=== PATIENT | male | born 1950 | race Caucasian/White ===

== ENCOUNTER 2020-04-18 08:52 | Outpatient (CLI) | payer OTHER, SELFPAY ==
--- NOTE | 2020-04-18 08:58 | USCV_ITS ---
Arun Higginbotham Age: 70 Gender: M : 1950 Exam Date: 04/18/2020 09:16 Ordering Phys: Niko Glez MD Technologist: Sam Smith Exam Location: [facility] [place] Indication: aaa HISTORY: Diameter (cm) AP x Transverse x Length Velocity (cm/s) Waveform Prox Aorta: 1.58 x 1.47 x 145.10 Biphasic Mid Aorta: 3.21 x 3.02 x 59.70 Biphasic Distal Aorta: 3.05 x 2.54 x 87.40 Biphasic Right Iliac Prox: 0.94 x 1.06 x 80.00 Biphasic Left Iliac Prox: 1.33 x 1.16 x 82.00 Biphasic Stent Prox Landing x x Aneurysmal Sac Max x x Lt Lat Sac Dim Rt Lat Sac Dim Stent Dist Landing x x Right Iliac Stent x x Left Iliac Stent x x Right Renal Art Left Renal Art FINDINGS: Comparison: none available. Normal Doppler flow velocites noted throught the aorta and common iliac arteries. Ectatic abdominal aorta with evidence of atherosclerotic plaque noted. Maximum diameter of 3.2 cm. CONCLUSIONS Minimal AAA, 3.2 cm, with ectasia and atherosclerosis. Dr. Rea Denton DO (Electronically Signed) Final Date: 18 April 2020 11:16 S
== END 2020-04-18 08:53 | disposition home or self-care (01) ==
LOC: RAD 08:56
PROVIDERS: PCP Family Medicine; Visit Provider Family Medicine
DX: I71.4 Abdominal aortic aneurysm, without rupture (principal); I70.0 Atherosclerosis of aorta
CPT/HCPCS: 93978

== ENCOUNTER 2020-11-23 14:16 | Outpatient (CLI) | payer OTHER, SELFPAY | END 2020-11-23 14:17 | disposition home or self-care (01) | LOC: SPT 14:16 | PROVIDERS: PCP Family Medicine; Visit Provider Orthopaedic Surgery | DX: Z46.89 Encounter for fitting and adjustment of other specified devices (principal); M18.11 Unilateral primary osteoarthritis of first carpometacarpal joint, right hand | CPT/HCPCS: L3924 ==

== ENCOUNTER → 2021-02-02 08:50 | Outpatient (BNVA) | payer OTHER, SELFPAY | PROVIDERS: PCP Family Medicine; Visit Provider Podiatrist Foot & Ankle Surgery | DX: M79.89 Other specified soft tissue disorders (principal) | CPT/HCPCS: 88307 ==

== ENCOUNTER 2021-03-29 23:05 | Inpatient (IN) | payer OTHER, MEDICARE, SELFPAY ==
--- NOTE | 2021-03-29 23:11 | ECG_ITS ---
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 Measurements Intervals [place] Rate: 76 P: 37 [place]: 222 QRS: -15 QRSD: 78 T: -1 QT: 353 QTc: 399 Interpretive Statements SINUS RHYTHM WITH FIRST DEGREE AV BLOCK POSSIBLE LEFT ATRIAL ENLARGEMENT [-0.1mV P WAVE IN V1/V2] INFERIOR MYOCARDIAL INFARCTION [40+ ms Q WAVE AND/OR ST/T ABNORMALITY IN II/aVF], PROBABLY OLD Compared to ECG 06/05/2019 09:38:27 Sinus arrhythmia no longer present Left-axis deviation no longer present Myocardial infarct finding still present Electronically Signed On 03-30-2021 20:07:26 CDT by Jax Beal M.D. [id number] f
--- NOTE | 2021-03-29 23:11 | XRR_ITS ---
PROCEDURE INFORMATION: Exam: XR Chest Exam date and time: 03/29/2021 11:11 PM Age: 71 years old Clinical indication: Chest pressure; Patient HX: Chest pain. No prior cardiac history. ; Additional info: Cp TECHNIQUE: Imaging protocol: XR of the chest. Views: 1 view. COMPARISON: CTA Abdomen/Pelvis [id number] 08/29/2017 9:46 AM FINDINGS: Lungs: Hazy bibasilar opacities and mild thickening of the interstitial markings which may be secondary to congestive heart failure. Pleural spaces: Unremarkable. No pleural effusion. No pneumothorax. Heart/Mediastinum: There is mild cardiomegaly. Bones/joints: Unremarkable. XR/XR chest 1V portable [id number] IMPRESSION: 1. Mild cardiomegaly. 2. Hazy bibasilar opacities and mild thickening of the interstitial markings which may be secondary to congestive heart failure.
[2021-03-29 23:17] VITALS: BP 170/91; PULSE 78; RESP 20; TEMP 36.6; O2SAT 91; BMI 32.5
[2021-03-30] VITALS (49 sets, daily range): BP systolic 115–168; BP diastolic 65–98; PULSE 60–93; RESP 9–28; TEMP 36.7–37.1; O2SAT 93–99
[2021-03-30 00:45] LABS: Basophils # 0.1 10^3/uL (0.0-0.1); Basophils % 0.8 %; Eosinophils # 0.1 10^3/uL (0.0-0.8); Eosinophils % 1.3 %; Hematocrit 45.2 % (42.0-52.0); Hemoglobin 15.4 g/dL (11.7-16.6); Lymphocytes # 1.3 10^3/uL (0.8-4.8); Lymphocytes % 21.5 %; Mean Corpuscular HGB Conc 34.1 g/dL (30.0-36.0); Mean Corpuscular Volume 93.8 fl (80-94); Mean Platelet Volume 10.6 fL (7.4-10.4); Monocytes # 0.5 10^3/uL (0.2-0.9); Monocytes % 8.5 %; Neutrophils # 4.15 10^3/uL (1.8-7.7); Neutrophils % 67.6 %; Nucleated Red Blood Cells % 0 %; Platelet Count 203 10^3/cmm (130-400); Red Blood Count 4.82 10^6/uL (4.1-5.3); Red Cell Distribution Width 13.3 % (12.1-15.1); White Blood Count 6.1 10^3/uL (4.0-10.0)
--- NOTE | 2021-03-30 01:01 | CTR_ITS ---
PROCEDURE INFORMATION: Exam: CTA Chest With Contrast Exam date and time: 03/30/2021 1:01 AM Age: 71 years old Clinical indication: Chest pressure; Patient HX: Chest pain. Abnormal cxr. Initial troponin of 290. ; Additional info: Mass/ cp TECHNIQUE: Imaging protocol: Computed tomographic angiography of the chest with contrast. 3D rendering (Not supervised by radiologist): MIP and/or 3D reconstructed images were created by the technologist. Radiation optimization: All CT scans at this facility use at least one of these dose optimization techniques: automated exposure control; mA and/or kV adjustment per patient size (includes targeted exams where dose is matched to clinical indication); or iterative reconstruction. Contrast material: OMNI 350; Contrast volume: 83 ml; Contrast route: INTRAVENOUS (IV); COMPARISON: CR XR chest 1V portable [id number] 03/30/2021 12:58 AM RADIATION DOSE METRICS: Total DLP (mGy-cm): 562.94 FINDINGS: Pulmonary arteries: No pulmonary embolism. Aorta: Mild atherosclerotic disease of the aorta without aneurysm. Lungs: Mild pulmonary fibrosis. Bilateral lower lobe infiltrates and edema of the interstitium. Pleural spaces: Tiny bilateral pleural effusions. Heart: Atherosclerotic coronary artery calcifications are present. There is mild cardiomegaly. Lymph nodes: Unremarkable. No enlarged lymph nodes. Bones/joints: Unremarkable. No acute fracture. Soft tissues: Unremarkable. CT/CT angio chest PE protcl [id number] IMPRESSION: 1. No pulmonary embolism. 2. Mild atherosclerotic disease of the aorta without aneurysm. 3. Atherosclerotic disease of the coronary arteries. 4. Mild pulmonary fibrosis. 5. Mild cardiomegaly. 6. Mild CHF/pulmonary edema , primarily affecting lower lobes. 7. Tiny bilateral pleural effusions. . Radiation Dose CTDIVOL = (mGy): DLP = 562.94 (mGy-cm)
[2021-03-30 01:05] LABS: Alanine Aminotransferase 28 U/L (0-41); Albumin Level 4.3 g/dL (3.5-5.2); Alkaline Phosphatase 95 IU/L (40-130); Anion Gap 16.3 (5-19); Aspartate Amino Transferase 36 U/L (0-40); Blood Urea Nitrogen 16 mg/dL (8-23); Calcium 9.4 mg/dL (8.5-10.5); Carbon Dioxide 24 mmol/L (22-29); Chloride 97 mmol/L (98-107); Globulin 2.5 g/dL (1.3-4.6); Glomerular Filtration Rate 74.1 mL/min (90-130); Glucose 165 mg/dL (65-115); Osmolality Calculated 281 mOsm/kg (285-295); Potassium 4.3 mmol/L (3.5-5.1); Sodium 133 mmol/L (136-145); Total Bilirubin 0.4 mg/dL (0.15-1.2); Total Protein 6.8 g/dL (6.6-8.7)
[2021-03-30 01:07] LABS: Troponin(5th) Baseline 290 ng/L (0-15)
--- NOTE | 2021-03-30 01:07 | ED_ITS ---
HPI - Chest Pain General: Chief Complaint: Chest Pain Stated Complaint: cp going down arm Time Seen by Provider: 03/30/21 00:04 Source: patient Limitations: no limitations History of Present Illness: HPI narrative: 71-year-old male states has been having ongoing chest pain over the last 6 months. He states he is has intermittent sharp pains in his right chest he states over the last 6 months. He states today he had another pain and it radiates to his right arm. He states pain is since resolved and is pain-free. He denies any fever cough. Denies any worsening improving factors. Denies any pain with exertion. Associated symptoms: Deny abdominal pain, dyspnea, fever(s), nausea or vomiting Review of Systems Const: Denies: fever(s), chills, body aches or change in appetite Eyes: Denies: blurry vision or eye discomfort ENMT: Denies: throat pain or dental pain Card: Reports: chest pain Resp: Denies: dyspnea GI: Denies: abdominal pain, nausea, vomiting or diarrhea : Denies: dysuria Musc: Denies: neck pain or back pain Skin/Breast: Denies: rash Neuro: Denies: headache(s) Psych: Denies: depression Héctor/Lymph: Denies: easy bruising All/Imm: Denies: urticaria PFSH ED PFSH: Medical History Abdominal aortic aneurysm, without rupture Allergic rhinitis, unspecified Benign prostatic hyperplasia without lower urinary tract symptoms Cervicalgia Chronic laryngitis Essential (primary) hypertension Generalized anxiety disorder Hyperlipidemia, unspecified Insomnia, unspecified Low back pain Obesity, unspecified Obstructive sleep apnea (adult) (pediatric) Pain in left arm Type 2 diabetes mellitus without complications Unspecified chronic gastritis without bleeding Physical Exam Const: COMMON NORMALS: no acute distress, patient oriented x3 and healthy appearing HENMT: COMMON NORMALS: normocephalic and atraumatic HEAD & SCALP: normocephalic and atraumatic Eye: COMMON NORMALS: Equal, round and reactive pupils present and EOMs intact bilaterally PUPIL: Yes Equal, round and reactive pupils present Neck/C-Spine: COMMON NORMALS: full ROM and supple Chest: COMMONS NORMALS: normal inspection of the chest and normal palpation of entire chest wall Resp: COMMON NORMALS: normal respiratory effort, No retractions, No use of accessory muscles and clear to auscultation bilaterally AUSCULTATION: clear to auscultation bilaterally Cardio: COMMON NORMALS: regular rate, regular rhythm and No murmurs present (Cardio) RATE: regular rate RHYTHM: regular rhythm GI: COMMON NORMALS: Normal to inspection, nondistended, normoactive bowel sounds present, Soft to palpation, non-tender and no masses PALPATION: Yes Soft to palpation Extremity: COMMON NORMALS: normal to inspection and full ROM Neuro: COMMON NORMALS: patient oriented x3, moves all extremities and no focal motor deficits Psych: COMMON NORMALS: mental status grossly normal, Normal thought process present and cooperative THOUGHT PROCESS: Normal thought process present Skin: COMMON NORMALS: no rashes or lesions noted and no wounds GENERAL SKIN EXAM: no rashes or lesions noted Course Vital Signs: Vital signs: Vital Signs Temperature 97.9 F 03/29/21 23:17 Pulse Rate 65 03/30/21 02:32 Respiratory Rate 16 03/30/21 02:32 Blood Pressure 148/81 03/30/21 02:32 Pulse Oximetry 93 03/30/21 02:32 MDM - Chest Pain MDM Narrative: Medical decision making narrative: Patient presents here with chest pain and has an elevated troponin with 2-hour troponin delta of over 300. Patient is likely having an NSTEMI. He is chest pain-free here and his EKG here showed no signs of ST elevation. Will start on Lovenox I spoke to hospitalist and cardiology and will admit. Lab Data: Labs: Lab Results 03/30/21 03/30/21 03/30/21 Range/Units 00:35 00:35 00:35 WBC 6.1 (4.0-10.0) 10^3/ uL RBC 4.82 (4.1-5.3) 10^6/u L Hgb 15.4 (11.7-16.6) g/dL Hct 45.2 (42.0-52.0) % MCV 93.8 (80-94) fl MCH 32.0 (28.0-34.0) pg MCHC 34.1 (30.0-36.0) g/dL RDW 13.3 (12.1-15.1) % Plt Count 203 (130-400) 10^3/c mm MPV 10.6 H (7.4-10.4) fL Neut % (Auto) 67.6 % Lymph % (Auto) 21.5 % Vernon % (Auto) 8.5 % Eos % (Auto) 1.3 % Baso % (Auto) 0.8 % Neut # (Auto) 4.15 (1.8-7.7) 10^3/u L Lymph # (Auto) 1.3 (0.8-4.8) 10^3/u L Vernon # (Auto) 0.5 (0.2-0.9) 10^3/u L Eos # (Auto) 0.1 (0.0-0.8) 10^3/u L Baso # (Auto) 0.1 (0.0-0.1) 10^3/u L Nucleated RBC % (a uto) 0 % Nucleated RBCs # 0.0 /100WBC Sodium 133 L (136-145) mmol/L Potassium 4.3 (3.5-5.1) mmol/L Chloride 97 L (98-107) mmol/L Carbon Dioxide 24 (22-29) mmol/L Anion Gap 16.3 (5-19) BUN 16 (8-23) mg/dL Creatinine 1.0 (0.7-1.2) mg/dL GFR Calculation 74.1 L (90-130) mL/min Glucose 165 H (65-115) mg/dL Calculated Osmolal ity 281 L (285-295) mOsm/k g Calcium 9.4 (8.5-10.5) mg/dL Total Bilirubin 0.4 (0.15-1.2) mg/dL AST 36 (0-40) U/L ALT 28 (0-41) U/L Alkaline Phosphata se 95 (40-130) IU/L Troponin T Baselin e 290 H* (0-15) ng/L Troponin T 120 Min [place] (0-15) ng/L Delta Troponin T (0-10) ABS# Total Protein 6.8 (6.6-8.7) g/dL Albumin 4.3 (3.5-5.2) g/dL Globulin 2.5 (1.3-4.6) g/dL 03/30/21 Range/Units 02:30 WBC (4.0-10.0) 10^3/ uL RBC (4.1-5.3) 10^6/u L Hgb (11.7-16.6) g/dL Hct (42.0-52.0) % MCV (80-94) fl MCH (28.0-34.0) pg MCHC (30.0-36.0) g/dL RDW (12.1-15.1) % Plt Count (130-400) 10^3/c mm MPV (7.4-10.4) fL Neut % (Auto) % Lymph % (Auto) % Vernon % (Auto) % Eos % (Auto) % Baso % (Auto) % Neut # (Auto) (1.8-7.7) 10^3/u L Lymph # (Auto) (0.8-4.8) 10^3/u L Vernon # (Auto) (0.2-0.9) 10^3/u L Eos # (Auto) (0.0-0.8) 10^3/u L Baso # (Auto) (0.0-0.1) 10^3/u L Nucleated RBC % (a uto) % Nucleated RBCs # /100WBC Sodium (136-145) mmol/L Potassium (3.5-5.1) mmol/L Chloride (98-107) mmol/L Carbon Dioxide (22-29) mmol/L Anion Gap (5-19) BUN (8-23) mg/dL Creatinine (0.7-1.2) mg/dL GFR Calculation (90-130) mL/min Glucose (65-115) mg/dL Calculated Osmolal ity (285-295) mOsm/k g Calcium (8.5-10.5) mg/dL Total Bilirubin (0.15-1.2) mg/dL AST (0-40) U/L ALT (0-41) U/L Alkaline Phosphata se (40-130) IU/L Troponin T Baselin e (0-15) ng/L Troponin T 120 Min [place] 626.3 H (0-15) ng/L Delta Troponin T 336.3 H* (0-10) ABS# Total Protein (6.6-8.7) g/dL Albumin (3.5-5.2) g/dL Globulin (1.3-4.6) g/dL Imaging Data^: CXR: Attestation: I personally reviewed and interpreted this imaging study as follows: My impression: right hilar mass CT Chest: Attestation: I personally reviewed and interpreted this imaging study as follows: [facility]'s impression: [facility] [address] [place] [address] CT Scan Report Signed Patient: Arun Higginbotham Unit #: [id number] : 1950 Age/Sex: 71 / M ADM Date: 03/29/21 Loc: ER Room/Bed: Attending Dr: Ordering Provider/Ordering MD: Arlyn Finnegan MD Date of Service: 03/30/21 Procedure(s): CT angio chest PE protcl [id number] Accession Number(s): [id number] Report Number: [id number] PROCEDURE INFORMATION: Exam: CTA Chest With Contrast Exam date and time: 03/30/2021 1:01 AM Age: 71 years old Clinical indication: Chest pressure; Patient HX: Chest pain. Abnormal cxr. Initial troponin of 290. ; Additional info: Mass/ cp TECHNIQUE: Imaging protocol: Computed tomographic angiography of the chest with contrast. 3D rendering (Not supervised by radiologist): MIP and/or 3D reconstructed images were created by the technologist. Radiation optimization: All CT scans at this facility use at least one of these dose optimization techniques: automated exposure control; mA and/or kV adjustment per patient size (includes targeted exams where dose is matched to clinical indication); or iterative reconstruction. Contrast material: OMNI 350; Contrast volume: 83 ml; Contrast route: INTRAVENOUS (IV); COMPARISON: CR XR chest 1V portable [id number] 03/30/2021 12:58 AM RADIATION DOSE METRICS: Total DLP (mGy-cm): 562.94 FINDINGS: Pulmonary arteries: No pulmonary embolism. Aorta: Mild atherosclerotic disease of the aorta without aneurysm. Lungs: Mild pulmonary fibrosis. Bilateral lower lobe infiltrates and edema of the interstitium. Pleural spaces: Tiny bilateral pleural effusions. Heart: Atherosclerotic coronary artery calcifications are present. There is mild cardiomegaly. Lymph nodes: Unremarkable. No enlarged lymph nodes. Bones/joints: Unremarkable. No acute fracture. Soft tissues: Unremarkable. CT/CT angio chest PE protcl [id number] IMPRESSION: 1. No pulmonary embolism. 2. Mild atherosclerotic disease of the aorta without aneurysm. 3. Atherosclerotic disease of the coronary arteries. 4. Mild pulmonary fibrosis. 5. Mild cardiomegaly. 6. Mild CHF/pulmonary edema , primarily affecting lower lobes. 7. Tiny bilateral pleural effusions. . Radiation Dose CTDIVOL = (mGy): DLP = 562.94 (mGy-cm) Dictated By: Sukh Givens Signed By: Sukh Givens Signed Date/Time: 03/30/21217 DD/ 6 EKG Data^: EKG 1: Attestation: I personally reviewed and interpreted this EKG as follows: EKG interpretation date: 03/30/21 EKG interpretation time: 23:13 Interpretation: nsr hr [address] or t wave abnormalities qrs 78 qtc 384 EKG 2: Attestation: I personally reviewed and interpreted this EKG as follows: EKG interpretation date: 03/30/21 EKG interpretation time: 03:21 Interpretation: sinus thanh hr [address] or t wave abnormalities qrs 92 qtc 409 Discharge Plan Discharge Patient Disposition: Admitted As Inpatient Clinical Impression: Non-ST elevation MN (NSTEMI) Condition: Stable Coding Level of Care Code ED Recreation Instructor for Chg Fwd Exam Comprehensive
--- NOTE | 2021-03-30 01:11 | ECG_ITS ---
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 Measurements Intervals [place] Rate: 59 P: 30 [place]: 245 QRS: -33 QRSD: 92 T: -27 QT: 409 QTc: 407 Interpretive Statements SINUS BRADYCARDIA WITH FIRST DEGREE AV BLOCK POSSIBLE RIGHT VENTRICULAR CONDUCTION DELAY [RSR (QR) IN V1/V2] Compared to ECG 03/29/2021 23:13:35 Sinus rhythm no longer present Myocardial infarct finding no longer present Electronically Signed On 03-30-2021 20:10:07 CDT by Jax Beal M.D. [id number]
[2021-03-30] MEDS: iohexol 350 mg/mL 100 mL Btl IV (01:19)
[2021-03-30] MEDS: ondansetron 2 mg/ML SDV 2 mL 4 MG IVP (01:27)
[2021-03-30] MEDS: morphine 4 mg/mL SDV 1 mL IVP (01:28)
[2021-03-30 03:15] LABS: Troponin 5 2HR 626.3 ng/L (0-15); Troponin 5 2HR Delta 336.3 ABS# (0-10)
[2021-03-30] MEDS: enoxaparin 100 mg/mL Syringe SUBCUT (03:29)
--- NOTE | 2021-03-30 04:33 | PM.HP ---
Providers/Chief Complaint Admitting Physician: Annabella Estrada MD Primary Care Provider: Jane Gupta MD Chief Complaint: cp going down arm History of Present Illness Arun Higginbotham is a 71 year old male with PMH HTN, DM, HLD presenting today with chest pain. Rates pain as 7/10, center of chest, radiating on to right side .HAd one episode today which has since resolved. Reports similar episodes intermittently with exertion over the past 6 months. EKG today without acute ST -T wave changes however troponin elevated at 290, going to 600 at 2 hrs with significant delta of 300 concerning for NSTEMI. CTA chest negative for PE. Review of Systems General: Reports: 10 or more systems reviewed and unremarkable except in HPI and below Const: Denies: fever(s), chills or body aches Eyes: Denies: change in vision, blurry vision or photophobia ENMT: Reports: hoarseness; Denies: throat pain, enlarged tonsils, odynophagia or nasal congestion Card: Denies: chest pain, palpitations, irregular heart rhythm, edema, swelling of feet/ankles, lightheadedness, pre-syncope, dyspnea on exertion or orthopnea Resp: Denies: dyspnea, productive cough, non-productive cough, wheezing, stridor, pain on inspiration, change in phlegm color, hemoptysis or chest congestion GI: Denies: abdominal pain, nausea, vomiting, hematemesis, coffee ground emesis, dysphagia, heartburn, diarrhea, constipation, GI cramping, change in stool character, hematochezia or melena : Denies: flank pain, dysuria, urinary frequency, urinary urgency, urinary hesitancy or hematuria Musc: Denies: neck pain, back pain, extremity pain, joint swelling, joint warmth or deformity Neuro: Denies: headache(s), numbness in extremities, weakness in extremities, sensory changes, difficulty walking, frequent falls, dizziness, vertigo, behavioral changes, Slurred speech present or seizure-like activity Psych: Denies: anxiety, depression, suicidal ideation or homicidal ideation Endo: Denies: polyuria, polydipsia, tired all the time, cold intolerance or hot flashes Héctor/Lymph: Denies: easy bruising or easy bleeding Medications/Allergies Home Medications Medication Instructions Recorded Confirmed Last Taken Type [facility] Brace #1 ea 11/23/20 02/02/21 Unknown Rx amlodipine 5 mg tablet 5 mg PO DAILY 11/23/20 02/02/21 Unknown History atorvastatin 80 mg tablet 80 mg PO DAILY 11/23/20 02/02/21 Unknown History cetirizine 10 mg tablet 10 mg PO DAILY PRN 11/23/20 02/02/21 Unknown History cyclobenzaprine 10 mg tablet 10 mg PO TID 11/23/20 02/02/21 Unknown History glipizide 10 mg tablet 10 mg PO DAILY 11/23/20 02/02/21 Unknown History insulin aspart U-100 100 unit/mL 5 unit SUBCUT TID 11/23/20 02/02/21 Unknown History (3 mL) subcutaneous pen insulin glargine 100 unit/mL (3 15 unit SUBCUT QAM 11/23/20 02/02/21 Unknown History mL) subcutaneous pen lisinopril 40 mg tablet 40 mg PO DAILY 11/23/20 02/02/21 Unknown History meloxicam 7.5 mg tablet 7.5 mg PO DAILY 11/23/20 02/02/21 Unknown History metformin 1,000 mg tablet 1,000 mg PO DAILY 11/23/20 02/02/21 Unknown History metoprolol tartrate 100 mg tablet 100 mg PO DAILY 11/23/20 02/02/21 Unknown History nystatin 100,000 unit/gram topical 1 applic TOPICAL BID 11/23/20 02/02/21 Unknown History cream trazodone 100 mg tablet 150 mg PO DAILY tab 11/23/20 02/02/21 Unknown History venlafaxine 150 mg tablet,extended 150 mg PO DAILY 11/23/20 02/02/21 Unknown History release 24 hr Allergies Allergy/AdvReac Type Severity Reaction Status Date / Time No Known Allergies Allergy Verified 02/02/21 08:22 PFSH Acute PFSH: Medical History Abdominal aortic aneurysm, without rupture Allergic rhinitis, unspecified Benign prostatic hyperplasia without lower urinary tract symptoms Cervicalgia Chronic laryngitis Essential (primary) hypertension Generalized anxiety disorder Hyperlipidemia, unspecified Insomnia, unspecified Low back pain Obesity, unspecified Obstructive sleep apnea (adult) (pediatric) Pain in left arm Type 2 diabetes mellitus without complications Unspecified chronic gastritis without bleeding Vitals/I&O/Wt Last Vital Signs Temp 97.9 F 03/29/21 23:17 Pulse 65 03/30/21 02:32 Resp 16 03/30/21 02:32 BP 148/81 03/30/21 02:32 Pulse Ox 93 03/30/21 02:32 Weight last 48 hrs Weight 99.79 kg Physical Exam Narrative: EXAM NARRATIVE: General: No acute distress, AO x3 HEENT: PERRLA, pupils bilaterally equal and reactive, pallors not present Chest: Normal vesicular breath sounds, no added sounds, equal good air entry bilaterally CVS: S1-S2 regular, no murmurs, no tachycardia, no gallops, no rubs Abdomen: Soft, nontender, no organomegaly, bowel sounds present Neuro: No focal deficits, no facial deformity, AO x3, power 5/5 in all limbs Data : 03/30/21 00:35 03/30/21 00:35 A&P Assessment and plan (1) Non-ST elevation NE (NSTEMI): Admit to CSU Troponin delta at 2 hrs at >300 Aspirin 81mg po daily, continue atorvastatin 80mg, metoprolol Holding lisinopril for now given anticipated contrast for possible angiogram Lovenox 1mg/kg q12h Cardiology consult for possible cath Insulin sliding scale for glycemic control prn morphine and nitro bid for pain control, currently reports chest pain is resolved Status: Acute Attestations Medical Necessity Statement*: Anticipate > 2 midnight admission for management of NSTEMI Coding Level of Care Code Acute Community Sports Coordinator for mavis Ortiz Diagnoses Non-ST elevation NE (NSTEMI) I21.4
--- NOTE | 2021-03-30 06:26 | USCV_ITS ---
Arun Higginbotham Age: 71 Gender: M : 1950 Exam Date: 03/30/2021 10:09 Ordering Phys: Annabella Estrada MD Technologist: Exam Location: [facility] [place]: NSTEMI BP: 142 / 87 HR: 78 Rhythm: Sinus Technical Quality: Adequate MEASUREMENTS (Male / Female) Normal Values 2D ECHO LV Diastolic Diameter PLAX 4.5 cm 4.2 - 5.9 / 3.9 - 5.3 cm LV Systolic Diameter PLAX 2.4 cm IVS Diastolic Thickness 1.2 cm 0.6 - 1.0 / 0.6 - 0.9 cm IVS Systolic Thickness 1.4 cm LVPW Diastolic Thickness 1.2 cm 0.6 - 1.0 / 0.6 - 0.9 cm LVPW Systolic Thickness 1.5 cm LVOT Diameter 2.0 cm LV Ejection Fraction 2D Teich 80.2 % LV Ejection Fraction MOD 2C 66.3 % LV Ejection Fraction 2C AL 66.0 % LA Diameter 4.2 cm LA Width 5.3 cm LA Height 6.0 cm RA Width 4.1 cm RA Height 5.0 cm DOPPLER AV Peak Velocity 146.0 cm/s LVOT Peak Velocity 84.0 cm/s AV Area Cont Eq vti 2.1 cm squared AV Area Cont Eq pk 1.9 cm squared MV Area PHT 5.0 cm squared Mitral E to A Ratio 1.1 MV E' Velocity 78.0 cm/s Mitral E to MV E' Ratio 18.5 Mitral E to LV E' Lateral Ratio 15.4 Mitral E to LV E' Septal Ratio 23.6 TR Peak Velocity 249.0 cm/s TR Peak Gradient 24.8 mmHg TV Peak E Velocity 136.0 cm/s Right Atrial Pressure 3.0 mmHg Pulmonary Artery Systolic Pressu 27.8 mmHg FINDINGS Left Ventricle Normal left ventricular size. LV systolic function is normal with EF of 55-60%. No regional wall motion abnormalities. Grade 2 diastolic dysfunction Right Ventricle The right ventricle is normal in size and function. Right Atrium The right atrium is normal in size. Left Atrium The left atrium is dilated. Mitral Valve Mild mitral annular calcification without significant stenosis or prolapse. There is mild to moderate mitral regurgitation. Aortic Valve Structurally normal aortic valve without significant sclerosis or stenosis. There is mild aortic regurgitation. Tricuspid Valve Structurally normal tricuspid valve without significant stenosis or regurgitation. Insufficient TR jet to calculate RVSP Pulmonic Valve Structurally normal pulmonic valve without significant stenosis. There is no pulmonic regurgitation. Pericardium Normal pericardium without effusion. Aorta Normal ascending aorta dimension. CONCLUSIONS LV systolic function is normal with EF of 55-60% Grade 2 diastolic dysfunction Left atrium is dilated Mild to moderate mitral regurgitation Mild aortic regurgitation No comparison study is available Jax Beal MD (Electronically Signed) Final Date: 30 March 2021 19:43 S
--- NOTE | 2021-03-30 07:36 | P.CONIM_ITS ---
Providers/Reason For Consult Consulting Physician/Specialty*: Jax Beal MD/ Cardiology Reason for Consult*: NSTEMI Requesting Physician: Dr Finnegan Attending Physician: Annabella Estrada MD Primary Care Provider: Jane Gupta MD History of Present Illness History of Present Illness Arun Higginbotham is a 71 year old male with past medical history hypertension, hyperlipidemia and diabetes presented to the ER last night with substernal chest pain radiating to the right side for few hours. He has been having on and off chest discomfort for several months. He says in [place] several years ago he had a treadmill stress test that he failed however no coronary angiogram was performed at that time. In the emergency room there were no ischemic changes on the EKG. His troponin levels increased significantly from 290 to 600 hours. He was started on NSTEMI protocol. He has been loaded with aspirin, Plavix and Lovenox. chest pain had resolved overnight however this morning again he has been having on and off chest discomfort. Review of Systems General: Reports: 10 or more systems reviewed and unremarkable except in HPI and below Const: Denies: fever(s), chills or body aches Eyes: Denies: change in vision, blurry vision or photophobia ENMT: Reports: hoarseness; Denies: throat pain, enlarged tonsils, odynophagia or nasal congestion Card: Reports: chest pain; Denies: palpitations, irregular heart rhythm, edema, swelling of feet/ankles, lightheadedness, pre-syncope, dyspnea on exertion or orthopnea Resp: Denies: dyspnea, productive cough, non-productive cough, wheezing, stridor, pain on inspiration, change in phlegm color, hemoptysis or chest congestion GI: Denies: abdominal pain, nausea, vomiting, hematemesis, coffee ground emesis, dysphagia, heartburn, diarrhea, constipation, GI cramping, change in stool character, hematochezia or melena : Denies: flank pain, dysuria, urinary frequency, urinary urgency, urinary hesitancy or hematuria Musc: Denies: neck pain, back pain, extremity pain, joint swelling, joint warmth or deformity Neuro: Denies: headache(s), numbness in extremities, weakness in extremities, sensory changes, difficulty walking, frequent falls, dizziness, vertigo, behavioral changes, Slurred speech present or seizure-like activity Psych: Denies: anxiety, depression, suicidal ideation or homicidal ideation Endo: Denies: polyuria, polydipsia, tired all the time, cold intolerance or hot flashes Héctor/Lymph: Denies: easy bruising or easy bleeding Meds/Allergies Home Medications and Allergies Home Medications Medication Instructions Recorded Confirmed Last Taken Type [facility] Brace #1 ea 11/23/20 03/30/21 Unknown Rx amlodipine 5 mg tablet 5 mg PO QAM 11/23/20 03/30/21 Unknown History atorvastatin 80 mg tablet 80 mg PO BEDTIME 11/23/20 03/30/21 Unknown History cetirizine 10 mg tablet 10 mg PO DAILY PRN 11/23/20 03/30/21 Unknown History insulin aspart U-100 100 unit/mL See Rx Instructions .ROUTE .COMPLEX 11/23/20 03/30/21 Unknown History (3 mL) subcutaneous pen insulin glargine 100 unit/mL (3 35 unit SUBCUT QAM 11/23/20 03/30/21 Unknown History mL) subcutaneous pen lisinopril 40 mg tablet 60 mg PO DAILY@04 11/23/20 03/30/21 Unknown History meloxicam 7.5 mg tablet 7.5 mg PO DAILY PRN 11/23/20 03/30/21 Unknown History metformin 1,000 mg tablet 1,000 mg PO BID 11/23/20 03/30/21 Unknown History metoprolol tartrate 100 mg tablet 100 mg PO BID 11/23/20 03/30/21 Unknown History trazodone 100 mg tablet 150 mg PO BEDTIME tab 11/23/20 03/30/21 Unknown History fluticasone propionate [Flonase] 2 spray INTRANASAL DAILY PRN 03/30/21 03/30/21 Unknown History glutamine 1 tab PO DAILY 03/30/21 03/30/21 Unknown History Allergies Allergy/AdvReac Type Severity Reaction Status Date / Time No Known Allergies Allergy Verified 03/30/21 12:20 Current Medications Current Medications Generic Name Dose Route Start Last Admin Trade Name Freq PRN Reason Stop Dose Admin Enoxaparin Sodium 100 mg 03/30/21 05:30 03/30/21 07:25 Enoxaparin 100 Mg/Ml Syringe SUBCUT Not Given Q12H MARA PFSH Acute PFSH: Medical History (Updated 03/30/21 @ 17:52 by Jax Beal M.D) Abdominal aortic aneurysm, without rupture Allergic rhinitis, unspecified Benign prostatic hyperplasia without lower urinary tract symptoms Cervicalgia Chronic laryngitis Essential (primary) hypertension Generalized anxiety disorder Hyperlipidemia, unspecified Insomnia, unspecified Low back pain Obesity, unspecified Obstructive sleep apnea (adult) (pediatric) Pain in left arm Type 2 diabetes mellitus without complications Unspecified chronic gastritis without bleeding Vitals/I&O/Wt Last Vital Signs Temp 97.9 F 03/29/21 23:17 Pulse 67 03/30/21 06:00 Resp 14 03/30/21 06:00 BP 120/65 03/30/21 06:00 Pulse Ox 94 03/30/21 06:00 Weight last 48 hrs Weight 220 lb Physical Exam Narrative: EXAM NARRATIVE: GENERAL: Patient is alert, awake and oriented x3. [] NECK: No jugular vein distension. [] HEENT: No cyanosis. No icterus. No pallor. [] HEART: Regular S1 and S2. No murmur, rub or gallop. [] LUNGS: Clear to auscultate bilaterally. [] ABDOMEN: Soft, nontender and nondistended. Positive bowel sounds. No guarding, rebound or tenderness. [] CENTRAL NERVOUS SYSTEM: Grossly nonfocal. [] EXTREMITIES: Lower extremities with 1+ edema bilaterally. Pulses palpable in the lower extremities, both dorsalis pedis and posterior tibial. [] A&P Assessment and plan (1) Non-ST elevation DE (NSTEMI): Status: Acute (2) Type 2 diabetes mellitus without complications: Status: Acute (3) Essential (primary) hypertension: Status: Acute (4) Hyperlipidemia, unspecified: Status: Acute Patient has presented with non-ST elevation DE. Continue NSTEMI protocol with aspirin, Plavix and Lovenox. N.p.o. for now. We will perform coronary angiogram today with possible percutaneous coronary intervention. Risks and benefits of the procedure have been discussed with the patient. Patient understands the risks and benefits and wants to proceed with the procedure. Order echocardiogram Keep trending troponins Continue atorvastatin, metoprolol and lisinopril. Thank you for involving us with care of this patient. We will continue to follow. Please call with questions. Coding Level of Care Code Acute Acoustic Warfare Analyst for Servando Ortiz Diagnoses Non-ST elevation DE (NSTEMI) I21.4 Type 2 diabetes mellitus without complications E11.9 Essential (primary) hypertension I10 Hyperlipidemia, unspecified E78.5
[2021-03-30 07:53] LABS: Troponin 5 6HR 1891 ng/L (0-15); Troponin 5 6HR Delta 1601 ng/L (0-12)
[2021-03-30] MEDS: clopidogrel 300 mg Tablet 600 MG PO (07:55)
[2021-03-30] MEDS: diphenhydrAMINE 50 mg Capsule PO (08:35)
[2021-03-30] MEDS: sodium chloride 0.9% 1,000 ML 50 ML IV (08:36)
--- NOTE | 2021-03-30 08:43 | XACV_ITS ---
Exam Room: [facility] Ht: 175 cm Wt: 100 kg BSA: 2.24 m2 Gender: Male : 1950 Exam Priority: Routine Procedure(s): Procedure Description: Diagnostic procedure Procedure Description: PCI procedure Procedure Description: Drug Eluting Coronary Stent Procedure Description: PTCA Procedure Description: Miscellaneous Procedure Description: Angio-Seal Procedure Description: ACT Procedure Description: Coronary Angiography Diagnostic Cath Status: Urgent Diagnostic Findings * Left Main has 30% stenosis. * Proximal Left Anterior Descending: total occlusion, LEEANN: 0 flow. Collateral vessels from diagonal artery supplies the distal LAD. * There is a medium sized ramus artery that is free of any significant Coronary artery disease. * There is a large sized diagonal artery that is free of significant stenosis. * Proximal Circumflex to Mid Circumflex: critical 95% stenosis, LEEANN: 3 flow. * Proximal Right Coronary Artery: total occlusion, LEEANN: 0 flow. * First Obtuse Marginal Branch Segment: significant 80% stenosis, LEEANN: 3 flow. * Coronary angiography shows left dominance. PCI Status: Elective PCI Indication: NSTE - ACS Interventional Findings * Procedure details: We engaged left main artery with a XB 3.5 guide catheter. IV heparin was administered to maintain an ACT above 250 seconds. We initially attempted briefly to cross the LIBRARY CLERK of the LAD, however it could not be wired. A 0.014 run-through guidewire was used to cross the stenosis and was placed in distal LCx. We used 2.5 x 25 mm semicompliant balloon was used to predilate the stenosis in the LCx. This was followed by placement of 3.0 x 34 mm resolute Little drug-eluting stent. We then redirected the same wire to the OM. A second stent measuring [id number] JASON was placed from LCx into the OM. Proximal part of the LCx stent was post dilated with a 3.0x8mm NC balloon. At this time final angiogram was performed that showed excellent stent expansion, LEEANN-3 flow and no residual stenosis. Guidewire and guide catheter were removed. Patient left the Inner Diameter Grinder Tool in a stable condition. * Proximal Circumflex to Mid Circumflex: 95% stenosis treated with a Drug Eluting Stent. 0% residual stenosis, LEEANN: 3 flow. * First Obtuse Marginal Branch Segment: 80% stenosis treated with a MDT R LITTLE 2.75X18 JASON, and MDT NC EUPHORA RX [id number] BALLOON. 0% residual stenosis, LEEANN: 3 flow. Conclusions 1. Severe multivessel coronary artery disease. 2. LIBRARY CLERK of LAD and non dominant RCA. 3. Proximal to mid LCx had severe stenosis and was the culprit vessel for the NSTEMI. CT surgery was called to make decision about revascularization with heart team approach. came to the Inner Diameter Grinder Tool and we reviewed angiogram together. Given large size of diagonal artery that was supplying collaterals to the LAD territory and a medium sized ramus vessel which was free of disease and large size of the left circumflex artery, it was decided to proceed with percutaneous revascularization of left circumflex artery. Patient's LV systolic function was preserved.. 4. Proximal Circumflex to Mid Circumflex was treated with a Drug Eluting Stent. 5. First Obtuse Marginal Branch Segment was treated with a Drug Eluting Stent, and Balloon. Recommendations * Transfer back to [facility]. * Aspirin and Plavix for atleast 1 year. * High intensity statin therapy. * Outpatient cardiology follow up in 4 weeks. Interventional RX Recommendation: PCI w/o planned CABG Diagnostic RX Recommendation: PCI w/o planned CABG Anticoagulation: Heparin Pressures Phase:Rest AO : 61 / 12 ( 38 ) @ 9:40:00 AM 58 / 22 ( 41 ) @ 9:40:00 AM 98 / 57 ( 75 ) @ 9:48:00 AM 84 / 29 ( 36 ) @ 9:51:00 AM Clinical Evaluation EBL: 5mL-10mL Procedural Details Procedure Consent Obtained. Current Diagnosis : NSTEMI. Identified patient by full name and date of as verbalized by the patient/guarantor. Identified patient by full name and date of as verbalized by the patient/guarantor. Does the consent match the physician's order: Yes. Accurate & Complete Informed Consent: Yes. Inpatient/Outpatient History & Physical on Chart: Yes. If H&P is completed, is and addenduem needed: no ;. Visualize and Verify Site with Patient/Guarantor: N/A. Relevant Radiology Images available: N/A. The risks, benefits, and alternatives of sedation and/or procedure were discussed by physician. The patient agrees to continue. Procedure started. [facility] Clinical Fraility Score: 3: Managing Well. Inner Diameter Grinder Tool Indications: Suspected CAD. Chest Pain Symptom Assessment: Typical Angina Symptoms. Cardiovascular Instability: No, if yes, Persistant Ischemic Symptoms. Correct patient, site and procedure confirmed by cath team. Current diagnosis: NSTEMI. PERRLA. Strong, equal hand barber stylist bilaterally. Lungs clear x 5 lobes. IV Site on Arrival: 18 gauge in the left forearm. Pre Procedural Pulses: right radial was 2+. Oxygen started at 2liters/min via nasal canula. right radial was prepped with chloroprep then draped in the usual sterile fashion. Physician notified. Baseline sample Acquired. HR: 88 BPM. Physician arrived. Physician scrubbed in. Immediate Pre-Procedure Time Out. Correct Patient: Yes; Correct Procedure: Yes; Correct Site: Yes; Correct Patient Position: Yes; Correct Supplies: Yes; Dried Flammable Prep: Yes; Blood Products Available: n/a. Equipment: 6F - Radial. Cardiac Cath Pack. ACIST Manifold Kit Model BT 2000. Heparinized Saline (2 units/mL), 1000 mL bag. Lidocaine 1% infiltrated to the right radial. Arterial access obtained. A 5 uruguayan TIG catheter in over wire. wire and catheter out. Hand Injection through the sheath. Hand injection through the sheath. Inventory is TR Glidewire Angled Stiff Shaft .035 260cm. Glidewire out. Hand injection through the sheath. Exchange wire inserted through the sheath. Exchange wire out. Hand injection through the sheath. Unable to obtain radial access. Sheath removed, TR band placed. Attempting groin access. A TR Band was successful obtaining hemostatsis at the Right Radial artery insertion site. Lidocaine 1% infiltrated to the right groin. Arterial access obtained with micropuncture set. A 5 uruguayan JR4 catheter in over wire. Wire out. Hand injection through the catheter. Multiple views taken of right coronary artery. Catheter removed over the exchange wire. A 5 uruguayan JL4 catheter in over wire. Multiple views taken of left coronary artery. Catheter out. Inventory is TR 180cm Runthrough NS extra floppy 0.014 wire. Inventory is CRD 6 FR XB 3.5 GUIDE. 6 uruguayan XB 3.5 guide catheter was inserted over the wire. Runthrough guidewire was advanced through the guide catheter to lesion in the prox LAD. 2.0x8 Mini Trek Balloon inserted over the wire. Unable to cross. Balloon removed over the wire. Guide catheter and wire out. Dr Rockwell called by Dr Beal. ACT drawn. Results 115 seconds. Therapeutic limits - pre-heparin administration 90-150 seconds and monitoring heparin during a vascular procedure >250 seconds. 6 uruguayan XB 3.5 guide catheter was inserted over the wire. Runthrough guidewire was advanced through the guide catheter to lesion in the distal circumflex. 2nd Runthrough wire advanced to OM 1. ACT drawn. Results 185 seconds. Therapeutic limits - pre-heparin administration 90-150 seconds and monitoring heparin during a vascular procedure >250 seconds. Inflation number : 1 A AB TREK 2.50X25 RX BALLOON was prepped and advanced across the Mid CX , then inflated to 12 CHINYERE for 0:27 seconds. Inflation number: 2 The AB TREK 2.50X25 RX BALLOON was reinflated across the Mid CX, to 12 CHINYERE for 0:23 seconds. Results checked. Balloon out. 2nd Runthrough out. 3.0x24 Little stent unable to cross. Stent removed over the wire. Inflation number: 3 The AB TREK 2.50X25 RX BALLOON was reinflated across the Mid CX, to 12 CHINYERE for 0:17 seconds. Inflation number: 4 The AB TREK 2.50X25 RX BALLOON was reinflated across the Mid CX, to 12 CHINYERE for 0:13 seconds. Balloon out. guideliner inserted OTW and advanced to the CX. Inflation Number : 5 A MDT R LITTLE 3.0X34 JASON -Lot Number# _[id number] exp 10/21/2022_ was prepped and advanced across the Mid CX. The stent was deployed at 12 CHINYERE for 0:28 seconds. Stent balloon and wire out. Results checked. Inflation Number : 1 A MDT R LITTLE 2.75X18 JASON -Lot Number# _[id number]_ Exp: 10/31/2022 was prepped and advanced across the 1st Ob Shira. The stent was deployed at 12 CHINYERE for 0:22 seconds. Stent balloon out over wire. Results checked. Inflation number : 2 A MDT NC EUPHORA RX [id number] BALLOON was prepped and advanced across the 1st Ob Shira , then inflated to 12 CHINYERE for 0:20 seconds. Inflation number: 3 The MDT NC EUPHORA RX [id number] BALLOON was reinflated across the 1st Ob Shira, to 12 CHINYERE for 0:11 seconds. Inflation number: 4 The MDT NC EUPHORA RX [id number] BALLOON was reinflated across the 1st Ob Shira, to 12 CHINYERE for 0:15 seconds. Inflation number: 5 The MDT NC EUPHORA RX [id number] BALLOON was reinflated across the 1st Ob Shira, to 12 CHINYERE for 0:10 seconds. Balloon out. Results checked. Wire out. Results checked. Guide catheter out. A Right femoral angiogram was performed to determine safe placement of closure device. Lidocaine 1% infiltrated to the right groin. Angioseal placed without complications. No signs or symptoms of hematoma noted. Sterile dressing applied per usual sterile fashion. Lot number [id number]. A Angio-Seal VIP (St. Arnaldo) was successful obtaining hemostatsis at the Right Femoral artery insertion site. Post Procedure: Pulses reassessed and unchanged. PERRLA. Strong, equal hand barber stylist bilaterally. No VTE prophylaxis required. Medication's Wasted: Lidocaine 1% = 10 mL. Medication's Wasted: Heparin = 2000 u. Medication's Wasted: Nitro = 49.4 mg. Total IV fluids: 150 mL. Estimated blood loss: 5mL-10mL. Procedure completed. Patient transferred by bed to 1st floor. Vital chart was stopped. Access Site Site: Right Radial artery Sheath Size: 6 Fr Hemostasis Method: TR Band Hemostasis Success: Successful Site: Right Femoral artery Sheath Size: 6 Fr Hemostasis Method: Angio-Seal VIP (St. Arnaldo) Hemostasis Success: Successful Procedure Medications Start: 9:05 AM Stop: 9:05 AM Medication: Versed Amount: 1 mg Route: I.V. Start: 9:05 AM Stop: 9:05 AM Medication: Fentanyl Amount: 50 mcg Route: I.V. Start: 9:09 AM Stop: 9:09 AM Medication: Nitrogylcerin Amount: 200 mcg Route: I.A. Start: 9:14 AM Stop: 9:14 AM Medication: Nitrogylcerin Amount: 200 mcg Route: I.A. Start: 9:26 AM Stop: 9:26 AM Medication: Versed Amount: 1 mg Route: I.V. Start: 10:14 AM Stop: 10:14 AM Medication: Heparin Amount: 6000 units Route: I.V. Start: 10:22 AM Stop: 10:22 AM Medication: Heparin Amount: 3000 units Route: I.V. Start: 10: AM Stop: : AM Medication: Versed Amount: 1 mg Route: I.V. Start: : AM Stop: : AM Medication: Fentanyl Amount: 25 mcg Route: I.V. Start: 10:57 AM Stop: : AM Medication: Nitrogylcerin Amount: 200 mcg Route: I.C. I, the attending physician, have reviewed and verified all procedure medications. Yes, all medications given per verbal order History/Risk Factors Hypertension: Yes Dyslipidemia: Yes Peripheral Arterial Disease (PAD): No Myocardial Infarction (NC): No Obesity: Yes Renal Disease: No Tobacco Use: Never Prior Interventions PCI: No CABG: No Valve Surgery: No Report Signatures Finalized by Jax Beal MD on 04/02/2021 09:57 PM
--- NOTE | 2021-03-30 11:09 | W.PM.OPSUD ---
Surgery/Procedure H&P Update DATE OF PROCEDURE: March 30, 2021 DATE H&P PERFORMED: 03/30/21 H&P UPDATE INFORMATION: I have reviewed H&P completed within last 30 days, I have examined patient prior to procedure, No changes to prior documentation and Changes to prior documentation as noted here PREOP DIAGNOSIS: NSTEMI PRIMARY INDICATION FOR PROCEDURE: NSTEMI PLANNED PROCEDURE: Operation Date: 03/30/21 10:00 Proposed Procedures p Cardiac Catheterization(Left) - Jax Beal M.D Possible percutaneous coronary intervention PATIENT REASSESSED PRIOR TO SEDATION, WITH NO CHANGE NOTED: Yes PHYSICAL EXAM: alert, oriented x 3, clear to auscultation bilaterally and regular rate & rhythm AIRWAY EVAL/ANESTHESIA PLAN: ASA III, Monitored Anesthesia, Local Anesthesia, Risks, benefits & alternatives of sedation and/or procedure discussed and Patient agrees to continue as planned
--- NOTE | 2021-03-30 12:20 | PC.PHAR ---
PT STATES HE TAKES CARE OF HIS OWN MEDICATIONS-PT STATES HE HAS BEEN OUT OF HIS ATORVASTATIN 80MG FOR A MONTH-PT STATES HE IS STILL TAKING AMLODIPINE 5MG [facility] AN MEDICATION-PT STATES HE IS TAKING LISINOPRIL 60MG DAILY [facility] 40MG DAILY-VENLAFAXINE ER 150MG [facility] PT STATES HE HASNT TAKEN THAT MEDICATION FOR 3 MONTHS
--- NOTE | 2021-03-30 13:09 | PM.PN ---
Subjective Subjective: Interval history: Patient was seen this morning, he had 2 stents placed, he tells me is feeling a lot better, no chest pain, no shortness of breath, denies smoking, does have type 2 diabetes mellitus, is not sure what his A1c is Vitals/I&O/Wt Last Vital Signs Temp 98.0 F 03/30/21 08:00 Pulse 85 03/30/21 12:15 Resp 21 H 03/30/21 12:15 BP 133/81 03/30/21 12:15 Pulse Ox 97 03/30/21 12:15 03/29/21 03/30/21 03/30/21 22:59 06:59 14:59 Output Total 1500 / 1500 Balance -1500 / -1500 Weight last 48 hrs Weight 99.79 kg Physical Exam Const: COMMON NORMALS: no acute distress and patient oriented x3 Resp: COMMON NORMALS: normal respiratory effort, No retractions, No use of accessory muscles and clear to auscultation bilaterally AUSCULTATION: clear to auscultation bilaterally Cardio: COMMON NORMALS: regular rate, regular rhythm, S1 normal heart sound present and S2 normal heart sound present RATE: regular rate RHYTHM: regular rhythm HEART SOUNDS: S1 normal heart sound present and S2 normal heart sound present GI: COMMON NORMALS: Normal to inspection, nondistended, normoactive bowel sounds present, Soft to palpation and non-tender PALPATION: Yes Soft to palpation Extremity: COMMON NORMALS: no pedal edema Neuro: COMMON NORMALS: patient oriented x3 Psych: COMMON NORMALS: mental status grossly normal Data : 03/30/21 00:35 03/30/21 00:35 A&P Assessment and plan (1) Non-ST elevation AR (NSTEMI): Admit to [facility]SU Troponin delta at 2 hrs at >300 Aspirin 81mg po daily, continue atorvastatin 80mg, metoprolol, Plavix Holding lisinopril for now given anticipated contrast for possible angiogram Lovenox discontinued Status post stenting to left circumflex, and OM1 Insulin sliding scale for glycemic control prn morphine and nitro bid for pain control, currently reports no chest pain We will start DVT prophylaxis in 24 to 48 hours, SCDs Full code Status: Acute Attestations Medical Necessity Statement*: Patient requires hospitalization and due to NSTEMI, status post cardiac stenting Coding Level of Care Code Acute Maker Up Folding for Chg Fwd Diagnoses Non-ST elevation AR (NSTEMI) I21.4
[2021-03-30] MEDS: amlodipine 5 mg Tablet PO (16:43)
[2021-03-30] MEDS: acetaminophen 325 mg Tablet 650 MG PO (17:02)
[2021-03-30 17:23] LABS: Glucose Point of Care 126 mg/dL (70-110)
--- NOTE | 2021-03-30 19:33 | PC.NURSE ---
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 Pt had right TR Band and right femoral angioseal. Right radial pulse was present and no hematoma or bleeding noted. Drsg to right femoral dry and intact no hematoma or bleeding noted. Pulses in right foot present and strong. Pt had no c/o pain or discomfort at the present time. TR Band was removed at 1620. No Hematoma or bleeding noted. Pt tolerated well. Will cont to monitor.
[2021-03-30 20:05] LABS: Glucose Point of Care 217 mg/dL (70-110)
[2021-03-30] MEDS: trazodone 150 mg Tablet PO (20:45)
[2021-03-31 00:24] VITALS: BP 121/73; PULSE 79; RESP 15; O2SAT 94
[2021-03-31 03:31] VITALS: BP 160/85; PULSE 90; RESP 17; TEMP 36.7; O2SAT 95
[2021-03-31 05:00] LABS: Basophils % 0.5 %; Eosinophils # 0.1 10^3/uL (0.0-0.8); Eosinophils % 1.1 %; Hematocrit 41.4 % (42.0-52.0); Hemoglobin 14.1 g/dL (11.7-16.6); Lymphocytes # 1.2 10^3/uL (0.8-4.8); Lymphocytes % 22.3 %; Mean Corpuscular HGB Conc 34.1 g/dL (30.0-36.0); Mean Corpuscular Hemoglobin 32.3 pg (28.0-34.0); Mean Platelet Volume 11.1 fL (7.4-10.4); Monocytes # 0.6 10^3/uL (0.2-0.9); Monocytes % 11.5 %; Neutrophils # 3.52 10^3/uL (1.8-7.7); Neutrophils % 64.4 %; Nucleated Red Blood Cells % 0 %; Platelet Count 159 10^3/cmm (130-400); Red Blood Count 4.36 10^6/uL (4.1-5.3); Red Cell Distribution Width 13.3 % (12.1-15.1); White Blood Count 5.5 10^3/uL (4.0-10.0)
[2021-03-31 05:17] LABS: Estmated Average Glucose 128; Hemoglobin A1C 6.1 % (4.0-6.0)
[2021-03-31 05:21] LABS: Alanine Aminotransferase 32 U/L (0-41); Albumin Level 3.7 g/dL (3.5-5.2); Alkaline Phosphatase 88 IU/L (40-130); Anion Gap 13.2 (5-19); Aspartate Amino Transferase 84 U/L (0-40); Blood Urea Nitrogen 12 mg/dL (8-23); Calcium 8.5 mg/dL (8.5-10.5); Carbon Dioxide 25 mmol/L (22-29); Chloride 103 mmol/L (98-107); Chol HDL Ratio 6.56 mg/dL (1.0-5.00); Cholesterol 223 mg/dL (0-200); Globulin 2.5 g/dL (1.3-4.6); Glomerular Filtration Rate 95.8 mL/min (90-130); Glucose 146 mg/dL (65-115); HDL Cholesterol 34 mg/dL (60-100); LDL Cholesterol Calculated 148 mg/dL (50-129); LDL HDL Ratio 4.35 RATIO (0.00-3.22); Magnesium 2.1 mg/dL (1.7-2.3); Osmolality Calculated 286 mOsm/kg (285-295); Potassium 4.2 mmol/L (3.5-5.1); Sodium 137 mmol/L (136-145); Total Bilirubin 0.7 mg/dL (0.15-1.2); Total Protein 6.2 g/dL (6.6-8.7); Triglycerides 204 mg/dL (0-150)
[2021-03-31 06:00] VITALS: PULSE 77
[2021-03-31] MEDS: insulin glargine 100 units/1 mL 15 UNIT SUBCUT (06:10)
[2021-03-31 06:43] LABS: Glucose Point of Care 162 mg/dL (70-110)
--- NOTE | 2021-03-31 07:48 | P.PN_ITS ---
Subjective Subjective: Interval history: Patient is doing well. He denies any complaints of chest pain, shortness of breath or palpitations. He underwent successful revascularization of left circumflex artery and OM1 with JASON x2. Vitals/I&O/Wt Last Vital Signs Temp 98.1 F 03/31/21 03:31 Pulse 77 03/31/21 06:00 Resp 17 03/31/21 03:31 BP 160/85 03/31/21 03:31 Pulse Ox 95 03/31/21 03:31 03/30/21 03/31/21 03/31/21 22:59 06:59 14:59 Intake Total 120 / 120 1000 / 1120 Output Total 1625 / 3125 625 / 3750 Balance -1505 / -3005 375 / -2630 Weight last 48 hrs Weight 220 lb Physical Exam Narrative: EXAM NARRATIVE: GENERAL: Patient is alert, awake and oriented x3. [] NECK: No jugular vein distension. [] HEENT: No cyanosis. No icterus. No pallor. [] HEART: Regular S1 and S2. No murmur, rub or gallop. [] LUNGS: Clear to auscultate bilaterally. [] ABDOMEN: Soft, nontender and nondistended. Positive bowel sounds. No guarding, rebound or tenderness. [] CENTRAL NERVOUS SYSTEM: Grossly nonfocal. [] EXTREMITIES: Lower extremities with 1+ edema bilaterally. Pulses palpable in the lower extremities, both dorsalis pedis and posterior tibial. [] Data : 03/31/21 04:32 03/31/21 04:32 A&P Assessment and plan (1) Non-ST elevation [place] (NSTEMI): Status: Acute (2) Type 2 diabetes mellitus without complications: Status: Acute (3) Essential (primary) hypertension: Status: Acute (4) Hyperlipidemia, unspecified: Status: Acute Patient had presented with non-ST elevation MO. He underwent coronary angiogram yesterday that showed CUBE MACHINE TENDER of LAD and a CUBE MACHINE TENDER of small nondominant RCA. He has a large diagonal artery which is patent. His medium to large sized ramus artery is also patent. Left circumflex artery was the culprit for non-ST elevation MO. It had severe 90% stenosis. There was a large OM branch that also had proximal severe 80% stenosis. He underwent successful revascularizatio n with JASON x2 after discussion with CT surgery regarding possible CABG. However given the size of diagonal artery and preserved LV systolic function, decision was made to pursue percutaneous revascularization of left circumflex artery at this time. Continue aspirin and Plavix for at least 1 year. High intensity statin therapy. Aggressive risk factor control. Thank you for involving us with care of this patient. Patient is stable to be discharged from cardiology standpoint. He will follow-up with us in the office as outpatient. Please call with questions. Attestations Medical Necessity Statement*: Care expected to cross 2 midnights. Coding Level of Care Code Acute [facility] for [facility] Connied Diagnoses Non-ST elevation [place] (NSTEMI) I21.4 Type 2 diabetes mellitus without complications E11.9 Essential (primary) hypertension I10 Hyperlipidemia, unspecified E78.5
--- NOTE | 2021-03-31 07:56 | PC.NURSE ---
Shift Note Frequent safety and comfort rounds continue. Orders and/or nursing care completed as indicated. Patient monitored for response to intervention and treatment(s). Education provided includes plan of care. Patient and/or technical service representative verbalized understanding. Will continue to monitor.
[2021-03-31 08:00] VITALS: BP 135/86; PULSE 90; RESP 17; O2SAT 97
[2021-03-31] MEDS: clopidogrel 75 mg Tablet PO (09:17)
[2021-03-31] MEDS: pantoprazole DR 40 mg Tablet PO (09:17)
[2021-03-31] MEDS: atorvastatin 40 mg Tablet 80 MG PO (09:17)
[2021-03-31] MEDS: venlafaxine ER (24HR) 150 mg Capsule PO (09:17)
[2021-03-31] MEDS: amlodipine 5 mg Tablet PO (09:18)
[2021-03-31] MEDS: aspirin 81 mg EC Tablet PO (09:18)
[2021-03-31] MEDS: metoprolol tartrate 50 mg Tablet 100 MG PO (09:18)
--- NOTE | 2021-03-31 11:30 | P.DS_ITS ---
Discharge Providers Date of Admission: 03/30/21 03:20 Date of Discharge: March 31, 2021 Attending Provider at Admission: Annabella Estrada MD Attending Provider at Discharge: Royce Carter MD Primary Care Provider: Jane Gupta MD Diagnoses at Discharge Discharge Diagnosis (1) Non-ST elevation [place] (NSTEMI): Status: Acute (2) Type 2 diabetes mellitus without complications: Status: Acute (3) Essential (primary) hypertension: Status: Acute (4) Hyperlipidemia, unspecified: Status: Acute Reason for Visit Reason for Visit: cp going down arm Hospital Course Hospital Course This is a 71-year-old male with a past medical history of hypertension, hyperlipidemia, insulin-dependent type 2 diabetes mellitus, who presents to [facility] due to chest pain, patient was admitted to [facility] for chest pain and NSTEMI, he underwent stenting to large OM branch, and left circumflex, remained chest pain-free, clinically did well. Patient will be discharged on aspirin, statin, Plavix for at least a year, advised of compliance, home metoprolol, with close follow-up with his primary care in cardiology as outpatient. Physical Exam Const: COMMON NORMALS: no acute distress and patient oriented x3 Resp: COMMON NORMALS: normal respiratory effort, No retractions, No use of accessory muscles and clear to auscultation bilaterally AUSCULTATION: clear to auscultation bilaterally Cardio: COMMON NORMALS: regular rate, regular rhythm, S1 normal heart sound present and S2 normal heart sound present RATE: regular rate RHYTHM: regular rhythm HEART SOUNDS: S1 normal heart sound present and S2 normal heart sound present GI: COMMON NORMALS: Normal to inspection, nondistended, normoactive bowel sounds present, Soft to palpation and non-tender PALPATION: Yes Soft to palpation Extremity: COMMON NORMALS: no pedal edema Neuro: COMMON NORMALS: patient oriented x3 Psych: COMMON NORMALS: mental status grossly normal Discharge Data Data Completed and Pending: Completed Studies During Hospitalization Category Date Time Status CT angio chest PE protcl [id number] Urge nt Cat Scan 03/30/21 01:01 Completed XR chest 1V kamaljit ble [id number] Stat Exams 03/29/21 23:11 Completed CV. 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 Routin e Exams 03/30/21 08:43 Taken Labs from last 24 hours 03/31/21 03/31/21 03/31/21 06:38 04:32 04:32 WBC RBC Hgb Hct MCV MCH MCHC RDW Plt Count MPV Neut % (Auto) Lymph % (Auto) [place] % (Auto) Eos % (Auto) Baso % (Auto) Neut # (Auto) Lymph # (Auto) [place] # (Auto) Eos # (Auto) Baso # (Auto) Nucleated RBC % (a uto) Nucleated RBCs # Sodium 137 Potassium 4.2 Chloride 103 Carbon Dioxide 25 Anion Gap 13.2 BUN 12 Creatinine 0.8 GFR Calculation 95.8 Glucose 146 H POC Glucose 162 H Estimat Average Gl ucose 128 Hemoglobin A1c 6.1 H Calculated Osmolal ity 286 Calcium 8.5 Magnesium 2.1 Total Bilirubin 0.7 AST 84 H ALT 32 Alkaline Phosphata se 88 Total Protein 6.2 L Albumin 3.7 Globulin 2.5 Triglycerides 204 H Cholesterol 223 H LDL Cholesterol, C alc 148 H HDL Cholesterol 34 L LDL/HDL Ratio 4.35 H Cholesterol/HDL Ra maninder 6.56 H 03/31/21 03/30/21 03/30/21 04:32 19:58 17:01 WBC 5.5 RBC 4.36 Hgb 14.1 Hct 41.4 L MCV 95.0 H MCH 32.3 MCHC 34.1 RDW 13.3 Plt Count 159 MPV 11.1 H Neut % (Auto) 64.4 Lymph % (Auto) 22.3 [place] % (Auto) 11.5 Eos % (Auto) 1.1 Baso % (Auto) 0.5 Neut # (Auto) 3.52 Lymph # (Auto) 1.2 [place] # (Auto) 0.6 Eos # (Auto) 0.1 Baso # (Auto) 0.0 Nucleated RBC % (a uto) 0 Nucleated RBCs # 0.0 Sodium Potassium Chloride Carbon Dioxide Anion Gap BUN Creatinine GFR Calculation Glucose POC Glucose 217 H 126 H Estimat Average Gl ucose Hemoglobin A1c Calculated Osmolal ity Calcium Magnesium Total Bilirubin AST ALT Alkaline Phosphata se Total Protein Albumin Globulin Triglycerides Cholesterol LDL Cholesterol, C alc HDL Cholesterol LDL/HDL Ratio Cholesterol/HDL Ra maninder Vitals: Last Vital Signs Temp 98.1 F 03/31/21 03:31 Pulse 90 03/31/21 08:00 Resp 17 03/31/21 08:00 BP 135/86 03/31/21 08:00 Pulse Ox 97 03/31/21 08:00 Discharge Plan Discharge Patient Disposition: Home Condition: Stable Prescriptions: New aspirin 81 mg Tablet,Delayed Release (Dr/Ec) 81 mg PO DAILY 30 Days Qty: 30 RF: 0 nitroglycerin 0.4 mg Tablet, Sublingual 0.4 mg sublingual Q5M PRN (Reason: Chest Pain) 30 Days Qty: 30 RF: 0 atorvastatin 40 mg Tablet 80 mg PO DAILY 30 Days Qty: 30 RF: 0 clopidogrel 75 mg Tablet 75 mg PO DAILY 30 Days Qty: 30 RF: 0 Continued cetirizine 10 mg tablet 10 mg PO DAILY PRN (Reason: Allergy Symptoms) RF: 0 insulin aspart U-100 [Novolog Flexpen U-100 Insulin] 100 unit/mL (3 mL) insul in pen See Rx Instructions .ROUTE .COMPLEX RF: 0 Lantus Solostar U-100 Insulin 100 unit/mL (3 mL) insulin pen 35 unit SUBCUT QAM RF: 0 metoprolol tartrate 100 mg tablet 100 mg PO BID RF: 0 metformin 1,000 mg tablet 1,000 mg PO BID RF: 0 trazodone 100 mg tablet 150 mg PO BEDTIME RF: 0 (DME) [facility] Brace See Rx Instructions .Route .MEDSUPPLY Qty: 1 RF: 0 Flonase 50 mcg/actuation [place],Suspension 2 spray INTRANASAL DAILY PRN (Reason: Allergy Symptoms) RF: 0 glutamine 1 tab PO DAILY RF: 0 Changed amlodipine 5 mg tablet 10 mg PO QAM Qty: 0 RF: 0 lisinopril 40 mg tablet 40 mg PO DAILY@04 Qty: 0 RF: 0 Discontinued atorvastatin 80 mg tablet 80 mg PO BEDTIME RF: 0 meloxicam 7.5 mg tablet 7.5 mg PO DAILY PRN (Reason: Inflammation) RF: 0 Discharge Orders: Discharge Order (Routine); Ordered 03/31/21 Ordered By: Royce Carter Referrals: Jane Gupta MD [Primary Care Provider] - Jax Beal M.D [Physician] - 2 weeks Discharge Diet: Cardiac Discharge Activity: Resume usual activity and Limit activity as instructed Patient Instructions: Opioid Safety Activity Restrictions/Additional Instructions: -If you have recurrent chest pain please go to the emergency room -Please use nitro as needed for chest pain -Please use aspirin, Plavix as prescribed -Do not stop taking these medications unless instructed to by cardiology -If you develop bloody or black stools go to the emergency room -Have your primary care provider recheck your blood work in 1 week, check hemoglobin -Discussed with primary care provider about new antidiabetic medications, such as Ozempic, that have cardiovascular benefit Discharge Attestations Time Spent in Discharge Care*: less than 30 min Quality Metrics Clinical Quality Measures During this hospital stay, did patient experience: AMI Clinical Trial Participant: No Contraindication to aspirin (AMI): Aspirin given Contraindication to statin: Statin prescribed Contraindication to PCI: PCI performed Coding Level of Care Code Acute [facility] note Diagnoses Non-ST elevation [place] (NSTEMI) I21.4 Type 2 diabetes mellitus without complications E11.9 Essential (primary) hypertension I10 Hyperlipidemia, unspecified E78.5
[2021-03-31 12:03] VITALS: BP 135/86; PULSE 90; RESP 17; TEMP 36.6; O2SAT 97
--- NOTE | 2021-03-31 14:09 | PC.CHAP ---
Pastoral Care Encounter/Spiritual Assessment Type of Contact [] Declined docent coordinator visit [] Patient/Family/Request visit [] Outpatient visit [xx] Follow-up visit [] Physician referral [] Code/Alert [xx] Routine visit [] Staff referral [] Actively dying [] Patient sleeping [] Family support [] [] Out of room [] Palliative care [] [] Receiving care in room [] Pre-surgical visit [] Trauma [] Long length of stay [] ICU visit [] Other: Relational/Emotional Strength [xx] Patient feels connected with others/family/visitors/staff [] Distress [] Loneliness/isolation [] Abandonment Spirituality of Patient [xx] Person of Jenifer [xx] Attends Orthodoxy of their Jenifer [xx] Believes in Prayer [xx] Reads Bible or Advent materials [] There are Spiritual issues to be addressed 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 [xx] Prayer [xx] Active listening [xx] Non-anxious presence [] Spiritual/emotional support [] Crisis/trauma care [] Spiritual counseling [] Bereavement support [] Provided bereavement packet [] Provided Bible/devotional materials [] Provided toy/stuffed animal, coloring book to patient or family member [] Provided Communion [] Anointing/[place] [] Salvation [xx] Completed spiritual assessment [] Other: Impact on Illness or Injury [] Angry [] Fearful [] Anxious [] Often cries [] Exhaustion [] Unable to work [] Unable to attend confucianism [] Unable to walk/stand [] Unable to read [] Unable to drive [] Unable to eat/drink [] Unable to sleep [] Unable to be with family [] Patient intubated [] Other: Summary Patient wanted to talk. He needed company. Conversation included Biblical aspects, current events issues and pets. He is a very pleasant person. He expects to be discharged by end of day. Time spent with patient 17 minutes
--- NOTE | 2021-03-31 14:30 | PC.NURSE ---
Pt discharged home. IV removed no redness or swelling noted. Pts discharge instructions given. Pt had no c/o pain or discomfort at the time of discharge.
--- NOTE | 2021-04-03 08:37 | PC.SOCIAL ---
discharge follow up call made. patient aware of follow up appointments. went over patients medications, taking as prescribed.
== END 2021-03-31 14:50 | disposition home or self-care (01) | DRG 247 ==
LOC: ER 03-30 03:17 → CSU 03-30 05:03
PROVIDERS: Internal Medicine; Admitting Provider Student in an Organized Health Care Education/Training Program; Emergency Provider Emergency Medicine; PCP Family Medicine; Visit Provider Family Medicine
PROC: 027135Z Dilation of Coronary Artery, Two Arteries with Two Drug-eluting Intraluminal Devices, Percutaneous Approach (ICD-10-PCS; principal; 2021-03-30 10:00)
PROC: 027135Z Dilation of Coronary Artery, Two Arteries with Two Drug-eluting Intraluminal Devices, Percutaneous Approach (ICD-10-PCS; 2021-03-30 10:00)
DX: I21.4 Non-ST elevation (NSTEMI) myocardial infarction (principal); I10 Essential (primary) hypertension; E11.9 Type 2 diabetes mellitus without complications; E78.5 Hyperlipidemia, unspecified; I71.4 Abdominal aortic aneurysm, without rupture; N40.0 Benign prostatic hyperplasia without lower urinary tract symptoms; F41.1 Generalized anxiety disorder; E66.9 Obesity, unspecified; Z68.32 Body mass index [BMI] 32.0-32.9, adult; G47.33 Obstructive sleep apnea (adult) (pediatric); K29.50 Unspecified chronic gastritis without bleeding; I25.10 Atherosclerotic heart disease of native coronary artery without angina pectoris; Z79.4 Long term (current) use of insulin
CPT/HCPCS: 36415; 36416; 71045; 71275; 80053; 80061; 82962; 83036; 83735; 84484; 85025; 85347; 93005; 93306; 93454; 96372; 96374; 99285; C1725; C1760; C1769; C1874; C1887; C1894; C9600; J1644; J1650; J1815 ×2; J2250; J2270; J2405; J3010; J3490; J7030; Q0163; Q9967

== ENCOUNTER → 2021-04-03 11:30 | Outpatient (BNVA) | payer OTHER, SELFPAY | PROVIDERS: PCP Family Medicine; Visit Provider Nurse Practitioner Family | DX: I25.10 Atherosclerotic heart disease of native coronary artery without angina pectoris (principal) | CPT/HCPCS: 80048 ==

== ENCOUNTER → 2021-10-20 09:18 | Outpatient (BNVA) | payer OTHER, SELFPAY | PROVIDERS: PCP Family Medicine; Visit Provider Internal Medicine | DX: Z09 Encounter for follow-up examination after completed treatment for conditions other than malignant neoplasm (principal); E11.9 Type 2 diabetes mellitus without complications; I10 Essential (primary) hypertension; E78.5 Hyperlipidemia, unspecified; I25.10 Atherosclerotic heart disease of native coronary artery without angina pectoris; Z79.4 Long term (current) use of insulin; Z79.84 Long term (current) use of oral hypoglycemic drugs; Z87.891 Personal history of nicotine dependence | CPT/HCPCS: 99213 ==

== ENCOUNTER 2022-01-03 13:02 | Emergency (ER) | payer OTHER, MEDICARE, SELFPAY ==
[2022-01-03 13:08] VITALS: BP 177/83; PULSE 76; RESP 18; TEMP 36.1; O2SAT 96; BMI 32.5
[2022-01-03 14:29] VITALS: BP 157/85; PULSE 70; RESP 16; O2SAT 99
[2022-01-03 14:30] VITALS: BP 157/85; PULSE 72; RESP 16; O2SAT 95
--- NOTE | 2022-01-03 14:32 | CTR_ITS ---
PROCEDURE INFORMATION: Exam: CTA Abdomen and Pelvis With Contrast, GI Bleeding Exam date and time: 01/03/2022 4:17 PM Age: 71 years old Clinical indication: Other: Groin pain and pressure in abd; Prior surgery; Surgery type: Stents, aneurysm repair; Additional info: Abdominal aortic aneurysm HX , L sided groin pain TECHNIQUE: Imaging protocol: Computed tomographic angiography of the abdomen and pelvis with contrast. 3D rendering (Not supervised by radiologist): MIP and/or 3D reconstructed images were created by the technologist. Radiation optimization: All CT scans at this facility use at least one of these dose optimization techniques: automated exposure control; mA and/or kV adjustment per patient size (includes targeted exams where dose is matched to clinical indication); or iterative reconstruction. Contrast material: OMNI 350; Contrast volume: 95 ml; Contrast route: INTRAVENOUS (IV); COMPARISON: CTA Abdomen/Pelvis [id number] 08/29/2017 9:46 AM RADIATION DOSE METRICS: Total DLP (mGy-cm): 1268.92 FINDINGS: Aorta: Infrarenal abdominal aortic aneurysm measuring up to 4.0 cm. No dissection. Celiac trunk and mesenteric arteries: Calcified plaque with proximal stenosis at the origins of the celiac and superior mesenteric arteries. Renal arteries: Calcified plaque in the proximal right renal artery without stenosis. No stenosis in the left renal artery. Right iliac arteries: Calcified plaque with multifocal mild stenoses in the right common and external iliac arteries. Left iliac arteries: Calcified plaque with multifocal mild stenoses in the left common and external iliac arteries. Liver: No mass. Gallbladder and bile ducts: Unremarkable. No calcified stones. No ductal dilation. Pancreas: Unremarkable. No mass. No ductal dilation. Spleen: Unremarkable. No splenomegaly. Adrenal glands: Normal. No mass. Kidneys and ureters: Unremarkable. No solid mass. No hydronephrosis. Stomach and bowel: Diverticulosis of the descending and sigmoid colon. No diverticulitis. No active GI hemorrhage identified. Appendix: The appendix is visualized and is normal. Intraperitoneal space: Unremarkable. No free air. No significant fluid collection. Lymph nodes: Unremarkable. No enlarged lymph nodes. Urinary bladder: Unremarkable. No mass. Reproductive: Mildly enlarged prostate with calcifications. Bones/joints: Chronic left L5 pars defect. No acute fracture. Soft tissues: Fat containing bilateral inguinal hernias. Small fat containing umbilical hernia. CT/CT angio abdomen pelvis [id number] IMPRESSION: 1. No evidence for active GI hemorrhage. 2. 4.0 cm infrarenal abdominal aortic aneurysm. 3. Diverticulosis of the distal colon.
--- NOTE | 2022-01-03 14:35 | W.ED.GENADLT ---
HPI - General Adult General: Chief complaint: Abdominal Pain Stated complaint: Lower abd pain Time Seen by Provider: 01/03/22 14:18 History of Present Illness: Patient is a 71-year-old male with history of diabetes, hypertension, CAD with stent x2, abdominal aortic aneurysm who presents emergency room with complaints of left-sided lower abdominal pain and dull achy pain worse at night. Patient tells me he has been having pain for the last month worse with positioning and night. Patient tells me that the pain has been getting worse and he is concerned about his abdominal aortic aneurysms and he would like that to be checked today. Patient denies any lightheadedness, abdominal pain, nausea/vomiting fever/chills, chest pain, shortness breath palpitation or lightheadedness, melena/hematochezia, or complaints. Onset: acute on chronic Duration:ongoing Location:home Severity:moderate Associated symptoms: Deny chest pain, dyspnea, nausea, rash, palpitations or vomiting Review of Systems Const: Denies: fever(s) or chills Eyes: Denies: change in vision ENMT: Denies: mouth pain Card: Denies: chest pain or palpitations Resp: Denies: dyspnea or non-productive cough GI: Reports: abdominal pain (+LLQ abdominal pain); Denies: nausea, vomiting or diarrhea : Denies: dysuria Musc: Denies: extremity pain Skin/Breast: Denies: rash or new lesions Neuro: Denies: weakness in extremities Psych: Reports: other (Normal mood) Héctor/Lymph: Denies: easy bruising PFS ED PFSH: Medical History Abdominal aortic aneurysm, without rupture Allergic rhinitis, unspecified Atherosclerosis of coronary artery Benign prostatic hyperplasia without lower urinary tract symptoms Cervicalgia Chronic laryngitis Essential (primary) hypertension Generalized anxiety disorder Hyperlipidemia, unspecified Insomnia, unspecified Low back pain Obesity, unspecified Obstructive sleep apnea (adult) (pediatric) Pain in left arm Type 2 diabetes mellitus without complications Unspecified chronic gastritis without bleeding Social History Smoking and tobacco status: former smoker Alcohol intake: former Physical Exam Const: COMMON NORMALS: alert HENMT: COMMON NORMALS: atraumatic HEAD & SCALP: atraumatic MOUTH: moist mucous membranes not abnormal Eye: COMMON NORMALS: EOMs intact bilaterally and conjunctivae normal CONJUNCTIVA: Yes conjunctivae normal Neck/C-Spine: COMMON NORMALS: full ROM and supple Resp: COMMON NORMALS: normal respiratory effort and clear to auscultation bilaterally AUSCULTATION: clear to auscultation bilaterally Cardio: COMMON NORMALS: regular rate RATE: regular rate GI: COMMON NORMALS: Soft to palpation PALPATION: Yes Soft to palpation OTHER: No focal TTP. NO guarding rebound, guarding, rigidity. No CVA tenderness to percussion. Neg Hobbs/Neg McBurney's point tenderness, no suprabupic tenderness to palpation. Extremity: COMMON NORMALS: full ROM Neuro: SENSORIUM/ORIENTATION: Yes alert MOTOR EXAM: No Abnormal motor strength present and Other motor observations present (no focal motor deficits) Psych: COMMON NORMALS: speech normal SPEECH: Yes normal speech MOOD & AFFECT: Yes euthymic mood Course Vital Signs: Vital signs: Vital Signs Temperature 97.0 F L 01/03/22 13:08 Pulse Rate 83 01/03/22 16:31 Respiratory Rate 16 01/03/22 16:31 Blood Pressure 173/102 01/03/22 16:31 Pulse Oximetry 99 01/03/22 16:31 MDM - General Adult Medical Decision Making 71-year-old male history of hypertension, diabetes, CAD with stent x2, abdominal aortic aneurysms presenting to the emergency room with complaints of worsening left lower quadrand abdominal pain that is present at night. On physical exam, patient has no focal tenderness palpation. No guarding or rebound tenderness. Patient is hemodynamically stable. Patient appears to be stable. CT abdomen pelvis did not show formed centimeters infrarenal aneurysm. No active hemorrhage no other focal pathology at this time. Patient is comfortable's sitting in room. Patient's pain improved with medication. At the present time, do not suspect any acute pathologies. The finding of 4 cm infrarenal aneurysm discussed extensively with patient and patient is aware that he needs to follow-up with his primary care provider for close monitoring. Rx tylenol PRN pain Disposition: Discharge. Patient counseled regarding diagnostic impression, treatment plan. Patient given ED strict return precautions to return for continuation, worsening, or development of new symptoms. Instructed to f/u w/ PCP regarding symptoms today. Patient verbalized understanding. Lab Data : 01/03/22 14:30 01/03/22 14:30 Radiology Impressions Abdomen/Pelvis CTA 01/03/22 14:32 IMPRESSION: 1. No evidence for active GI hemorrhage. 2. 4.0 cm infrarenal abdominal aortic aneurysm. 3. Diverticulosis of the distal colon. Laboratory Results WBC 6.0 10^3/uL (4.0-10.0) 01/03/22 14:30 RBC 4.74 10^6/uL (4.1-5.3) 01/03/22 14:30 Hgb 15.2 g/dL (11.7-16.6) 01/03/22 14:30 Hct 42.8 % (42.0-52.0) 01/03/22 14:30 MCV 90.3 fl (80-94) 01/03/22 14:30 MCH 32.1 pg (28.0-34.0) 01/03/22 14:30 MCHC 35.5 g/dL (30.0-36.0) 01/03/22 14:30 RDW 13.0 % (12.1-15.1) 01/03/22 14:30 Plt Count 189 10^3/cmm (130-400) 01/03/22 14:30 MPV 10.9 fL (7.4-10.4) H 01/03/22 14:30 Neut % (Auto) 56.7 % 01/03/22 14:30 Lymph % (Auto) 31.0 % 01/03/22 14:30 [place] % (Auto) 9.8 % 01/03/22 14:30 Eos % (Auto) 1.5 % 01/03/22 14:30 Baso % (Auto) 0.7 % 01/03/22 14:30 Neut # (Auto) 3.42 10^3/uL (1.8-7.7) 01/03/22 14:30 Lymph # (Auto) 1.9 10^3/uL (0.8-4.8) 01/03/22 14:30 [place] # (Auto) 0.6 10^3/uL (0.2-0.9) 01/03/22 14:30 Eos # (Auto) 0.1 10^3/uL (0.0-0.8) 01/03/22 14:30 Baso # (Auto) 0.0 10^3/uL (0.0-0.1) 01/03/22 14:30 Nucleated RBC % (auto) 0 % 01/03/22 14:30 Nucleated RBCs # 0.0 /100WBC 01/03/22 14:30 Sodium 138 mmol/L (136-145) 01/03/22 14:30 Potassium 4.1 mmol/L (3.5-5.1) 01/03/22 14:30 Chloride 100 mmol/L (98-107) 01/03/22 14:30 Carbon Dioxide 25 mmol/L (22-29) 01/03/22 14:30 Anion Gap 17.1 (5-19) 01/03/22 14:30 BUN 25 mg/dL (8-23) H 01/03/22 14:30 Creatinine 1.2 mg/dL (0.7-1.2) 01/03/22 14:30 GFR Calculation 60.0 mL/min (90-130) L 01/03/22 14:30 Glucose 112 mg/dL (65-115) 01/03/22 14:30 Calculated Osmolality 291 mOsm/kg (285-295) 01/03/22 14:30 Calcium 10.3 mg/dL (8.5-10.5) 01/03/22 14:30 Total Bilirubin 0.7 mg/dL (0.15-1.2) 01/03/22 14:30 AST 16 U/L (0-40) 01/03/22 14:30 ALT 16 U/L (0-41) 01/03/22 14:30 Alkaline Phosphatase 84 IU/L (40-130) 01/03/22 14:30 Total Protein 7.7 g/dL (6.6-8.7) 01/03/22 14:30 Albumin 5.0 g/dL (3.5-5.2) 01/03/22 14:30 Globulin 2.7 g/dL (1.3-4.6) 01/03/22 14:30 Lipase 46 U/L (13-60) 01/03/22 14:30 Urine Color Yellow (Yellow) 01/03/22 16:01 Urine Appearance Clear (CLEAR) 01/03/22 16:01 Urine pH 5 (5-7) 01/03/22 16:01 Ur Specific Ages [place] 1.025 (1.005-1.030) 01/03/22 16:01 Urine Protein 1+ (Negative) H 01/03/22 16:01 Urine Glucose (UA) Norm (Normal) 01/03/22 16:01 Urine Ketones 1+ (Negative) H 01/03/22 16:01 Urine Blood Neg (Negative) 01/03/22 16:01 Urine Nitrate Negative (Negative) 01/03/22 16:01 Urine Bilirubin Neg (Negative) 01/03/22 16:01 Urine Urobilinogen Norm mg/dL (Negative) 01/03/22 16:01 Ur Leukocyte Esterase Negative (Negative) 01/03/22 16:01 Urine RBC 0-4 /hpf (0-2) H 01/03/22 16:01 Urine WBC 0-4 /hpf (0-5) H 01/03/22 16:01 Ur Squamous Epith Cells 0-4 /hpf (0-5) H 01/03/22 16:01 Amorphous Sediment Not Reportable 01/03/22 16:01 Urine Bacteria None /hpf (NONE) 01/03/22 16:01 Hyaline Casts 0-4 /lpf H 01/03/22 16:01 Imaging Data Other Imaging: Radiologist's impression: [place] [address] CT Scan Report Signed Patient: Arun Higginbotham Unit #: [id number] : 1950 Age/Sex: 71 / M ADM Date: 01/03/22 Loc: ER Room/Bed: Attending Dr: Ordering Provider/Ordering MD: Gavino Ramirez MD Date of Service: 01/03/22 Procedure(s): CT angio abdomen pelvis 70199 Accession Number(s): [id number] Report Number: [id number] PROCEDURE INFORMATION: Exam: CTA Abdomen and Pelvis With Contrast, GI Bleeding Exam date and time: 01/03/2022 4:17 PM Age: 71 years old Clinical indication: Other: Groin pain and pressure in abd; Prior surgery; Surgery type: Stents, aneurysm repair; Additional info: Abdominal aortic aneurysm HX , L sided groin pain TECHNIQUE: Imaging protocol: Computed tomographic angiography of the abdomen and pelvis with contrast. 3D rendering (Not supervised by radiologist): MIP and/or 3D reconstructed images were created by the technologist. Radiation optimization: All CT scans at this facility use at least one of these dose optimization techniques: automated exposure control; mA and/or kV adjustment per patient size (includes targeted exams where dose is matched to clinical indication); or iterative reconstruction. Contrast material: OMNI 350; Contrast volume: 95 ml; Contrast route: INTRAVENOUS (IV);? COMPARISON: CTA Abdomen/Pelvis 97821 08/29/2017 9:46 AM RADIATION DOSE METRICS: Total DLP (mGy-cm): 1268.92 FINDINGS: Aorta: Infrarenal abdominal aortic aneurysm measuring up to 4.0 cm. No dissection. Celiac trunk and mesenteric arteries: Calcified plaque with proximal stenosis at the origins of the celiac and superior mesenteric arteries. Renal arteries: Calcified plaque in the proximal right renal artery without stenosis. No stenosis in the left renal artery. Right iliac arteries: Calcified plaque with multifocal mild stenoses in the right common and external iliac arteries. Left iliac arteries: Calcified plaque with multifocal mild stenoses in the left common and external iliac arteries. Liver: No mass. Gallbladder and bile ducts: Unremarkable. No calcified stones. No ductal dilation. Pancreas: Unremarkable. No mass. No ductal dilation. Spleen: Unremarkable. No splenomegaly. Adrenal glands: Normal. No mass. Kidneys and ureters: Unremarkable. No solid mass. No hydronephrosis. Stomach and bowel: Diverticulosis of the descending and sigmoid colon. No diverticulitis. No active GI hemorrhage identified. Appendix: The appendix is visualized and is normal. Intraperitoneal space: Unremarkable. No free air. No significant fluid collection. Lymph nodes: Unremarkable. No enlarged lymph nodes. Urinary bladder: Unremarkable. No mass. Reproductive: Mildly enlarged prostate with calcifications. Bones/joints: Chronic left L5 pars defect. No acute fracture. Soft tissues: Fat containing bilateral inguinal hernias. Small fat containing umbilical hernia. CT/CT angio abdomen pelvis 24292 IMPRESSION: 1. No evidence for active GI hemorrhage. 2. 4.0 cm infrarenal abdominal aortic aneurysm. 3. Diverticulosis of the distal colon.? ? Dictated By: Terry Rivas Signed By: Terry Rivas Signed Date/Time: 01/03/22 1702 DD/ 1617 Discharge Plan Discharge Patient Disposition: Home Clinical Impression: Abdominal pain Condition: Stable Prescriptions: New acetaminophen 500 mg tablet 500 mg PO Q6H PRN (Reason: pain) 5 Days Qty: 20 0RF No Action aspirin [Adult Low Dose Aspirin] 81 mg tablet,delayed release (DR/EC) 81 mg PO DAILY 0RF insulin aspart U-100 [Novolog Flexpen U-100 Insulin] 100 unit/mL (3 mL) insulin pen See Rx Instructions .ROUTE .COMPLEX 0RF Rx Instructions: SLIDING SCALE 5-15 UNITS subcutaneously TID BEFORE MEALS Lantus Solostar U-100 Insulin 100 unit/mL (3 mL) insulin pen 35 unit SUBCUT QAM 0RF metoprolol tartrate 100 mg tablet 100 mg PO BID 0RF metformin 1,000 mg tablet 1,000 mg PO BID 0RF trazodone 100 mg tablet 150 mg PO BEDTIME 0RF (DME) [facility] Brace See Rx Instructions .Route .MEDSUPPLY Qty: 1 0RF Rx Instructions: As directed clopidogrel [Plavix] 75 mg tablet 75 mg PO DAILY Qty: 90 3RF atorvastatin 80 mg Tablet 80 mg PO DAILY 0RF meloxicam 7.5 mg Tablet 7.5 mg PO DAILY 0RF amlodipine 5 mg tablet 5 mg PO BID 0RF lisinopril 40 mg tablet 40 mg PO DAILY@04 0RF Discharge Orders: Discharge ED (Routine); Ordered 01/03/22 Ordered By: Gavino Ramirez Referrals: Jane Gupta MD [Primary Care Provider] - Discharge Diet: Advance as tolerated Discharge Activity: Increase activity as tolerated Patient Instructions: Abdominal Pain (ED) Activity Restrictions/Additional Instructions: Please come back if you have any worsening abdominal pain, fever or chills, nausea or vomiting, diarrhea, blood in the stool, inability hold down liquid or solids, or any new concerning complaints. Please follow-up with your primary care provider for reassessing your aneurysm. Your infrarenal aneurysm is about 4 cm today. Come back to the emergency room for new or concerning complaints. Coding Level of Care Code ED Procurement Forester for Servando Fwd Exam Comprehensive
[2022-01-03] MEDS: sodium chloride 0.9% 500 ML IV (14:45)
[2022-01-03] MEDS: morphine 4 mg/mL SDV 1 mL 2 MG IVP (14:48)
[2022-01-03 14:59] LABS: Basophils % 0.7 %; Eosinophils # 0.1 10^3/uL (0.0-0.8); Eosinophils % 1.5 %; Hematocrit 42.8 % (42.0-52.0); Hemoglobin 15.2 g/dL (11.7-16.6); Lymphocytes # 1.9 10^3/uL (0.8-4.8); Mean Corpuscular HGB Conc 35.5 g/dL (30.0-36.0); Mean Corpuscular Hemoglobin 32.1 pg (28.0-34.0); Mean Corpuscular Volume 90.3 fl (80-94); Mean Platelet Volume 10.9 fL (7.4-10.4); Monocytes # 0.6 10^3/uL (0.2-0.9); Monocytes % 9.8 %; Neutrophils # 3.42 10^3/uL (1.8-7.7); Neutrophils % 56.7 %; Nucleated Red Blood Cells % 0 %; Platelet Count 189 10^3/cmm (130-400); Red Blood Count 4.74 10^6/uL (4.1-5.3)
--- NOTE | 2022-01-03 15:08 | ECG_ITS ---
[facility] Test Date: 2022-01-03 Pat Name: Arun Higginbotham Department: Room: Gender: Male Office Lead: : 1950 Requested By: Gavino Ramirez Order Number: [id number] Luke MD: Blanca Dunn M.D. Measurements Intervals [place] Rate: 57 P: 34 OK: 232 QRS: -53 QRSD: 97 T: 34 QT: 418 QTc: 409 Interpretive Statements SINUS BRADYCARDIA WITH FIRST DEGREE AV BLOCK PATTERN CONSISTENT WITH PULMONARY DISEASE POSSIBLE RIGHT VENTRICULAR CONDUCTION DELAY [RSR (QR) IN V1/V2] Compared to ECG 03/30/2021 03:21:10 No significant changes Electronically Signed On 01-03-2022 22:15:11 CDT by Blanca Dunn M.D. [email or web address]
[2022-01-03 15:17] LABS: Alanine Aminotransferase 16 U/L (0-41); Alkaline Phosphatase 84 IU/L (40-130); Anion Gap 17.1 (5-19); Aspartate Amino Transferase 16 U/L (0-40); Blood Urea Nitrogen 25 mg/dL (8-23); Calcium 10.3 mg/dL (8.5-10.5); Carbon Dioxide 25 mmol/L (22-29); Chloride 100 mmol/L (98-107); Creatinine Clr Calc Pharmacy 67.6604; Globulin 2.7 g/dL (1.3-4.6); Glucose 112 mg/dL (65-115); Lipase 46 U/L (13-60); Osmolality Calculated 291 mOsm/kg (285-295); Potassium 4.1 mmol/L (3.5-5.1); Sodium 138 mmol/L (136-145); Total Bilirubin 0.7 mg/dL (0.15-1.2); Total Protein 7.7 g/dL (6.6-8.7)
[2022-01-03] MEDS: iohexol 350 mg/mL 100 mL Btl IV (16:15)
[2022-01-03 16:31] VITALS: BP 173/102; PULSE 83; RESP 16; O2SAT 99
[2022-01-03 16:47] LABS: Glucose Urine UA Norm (Normal); Ketones Urine 1+ (Negative); Protein Urine 1+ (Negative); Specific Gravity, Urine 1.025 (1.005-1.030); Urine Appearance Clear (CLEAR); Urine Color Yellow (Yellow); pH Urine 5 (5-7)
[2022-01-03 16:48] LABS: Add Urine Culture? No; Add Urine Microscopic? YES; Bilirubin Urine Neg (Negative); Blood Urine Neg (Negative); Hyaline Casts Urine 0-4 /lpf; Leukocyte Esterase Urine Negative (Negative); Nitrate Urine Negative (Negative); RBC Urine 0-4 /hpf (0-2); Squamous Epithelial Cell Urine 0-4 /hpf (0-5); Urobilinogen Urine Norm (Negative); WBC Urine 0-4 /hpf (0-5)
[2022-01-03 18:03] VITALS: BP 180/106; PULSE 58; RESP 17; O2SAT 96
== END 2022-01-03 18:43 | disposition home or self-care (01) ==
PROVIDERS: Emergency Provider Emergency Medicine; PCP Family Medicine
DX: R10.32 Left lower quadrant pain (principal); I71.4 Abdominal aortic aneurysm, without rupture; I10 Essential (primary) hypertension; E11.9 Type 2 diabetes mellitus without complications; I25.10 Atherosclerotic heart disease of native coronary artery without angina pectoris; Z95.5 Presence of coronary angioplasty implant and graft; Z87.891 Personal history of nicotine dependence; Z79.4 Long term (current) use of insulin; Z79.84 Long term (current) use of oral hypoglycemic drugs
CPT/HCPCS: 74174; 80053; 81001; 83690; 85025; 93005; 96374; 99284; J2270; J7040; Q9967

== ENCOUNTER 2022-02-13 03:06 | Emergency (ER) | payer OTHER, MEDICARE, SELFPAY ==
[2022-02-13 03:13] VITALS: BP 131/77; RESP 16; TEMP 36.4; BMI 32.1
--- NOTE | 2022-02-13 03:17 | ED_ITS ---
HPI - Abdominal Pain General: Chief Complaint: Abdominal Pain Stated Complaint: ABD Pain/dark stools Time Seen by Provider: 02/13/22 03:09 Source: patient Mode of arrival: ambulatory Limitations: no limitations History of Present Illness: 71-year-old male who states that he woke up this morning roughly an hour ago. He states he is having a lot of pressure in his lower abdomen and states that he had went to the bathroom and urinated and his pain was improved he states he had a bowel movement to that was darker in nature but was not black and did not notice any blood. Patient states he has a history of an aneurysm was concerned about that. He states that when he woke up his pain was a 5 out of 10 again after he urinated he is completely pain-free currently denies any radiation of his pain. Associated Symptoms: Denies chills, dysuria and fever(s) Review of Systems Const: Denies: fever(s), chills, body aches or change in appetite Eyes: Denies: blurry vision or eye discomfort ENMT: Denies: throat pain or dental pain Card: Denies: chest pain Resp: Denies: dyspnea GI: Reports: abdominal pain : Denies: dysuria Musc: Denies: neck pain or back pain Skin/Breast: Denies: rash Neuro: Denies: headache(s) Psych: Denies: depression Héctor/Lymph: Denies: easy bruising All/Imm: Denies: urticaria PFSH ED PFSH: Medical History Abdominal aortic aneurysm, without rupture Allergic rhinitis, unspecified Atherosclerosis of coronary artery Benign prostatic hyperplasia without lower urinary tract symptoms Cervicalgia Chronic laryngitis Essential (primary) hypertension Generalized anxiety disorder Hyperlipidemia, unspecified Insomnia, unspecified Low back pain Obesity, unspecified Obstructive sleep apnea (adult) (pediatric) Pain in left arm Type 2 diabetes mellitus without complications Unspecified chronic gastritis without bleeding Social History Smoking and tobacco status: former smoker Alcohol intake: former Physical Exam Const: COMMON NORMALS: no acute distress, patient oriented x3 and healthy appearing HENMT: COMMON NORMALS: normocephalic and atraumatic HEAD & SCALP: normocephalic and atraumatic Eye: COMMON NORMALS: Equal, round and reactive pupils present and EOMs intact bilaterally PUPIL: Yes Equal, round and reactive pupils present Neck/C-Spine: COMMON NORMALS: full ROM and supple Chest: COMMONS NORMALS: normal inspection of the chest and normal palpation of entire chest wall Resp: COMMON NORMALS: normal respiratory effort, No retractions, No use of accessory muscles and clear to auscultation bilaterally AUSCULTATION: clear to auscultation bilaterally Cardio: COMMON NORMALS: regular rate, regular rhythm and No murmurs present (Cardio) RATE: regular rate RHYTHM: regular rhythm GI: COMMON NORMALS: Normal to inspection, nondistended, normoactive bowel sounds present, Soft to palpation, non-tender and no masses PALPATION: Yes Soft to palpation RECTAL EXAM: Yes normal sphincter tone and No heme positive stool Extremity: COMMON NORMALS: normal to inspection and full ROM Neuro: COMMON NORMALS: patient oriented x3, moves all extremities and no focal motor deficits Psych: COMMON NORMALS: mental status grossly normal, Normal thought process present and cooperative THOUGHT PROCESS: Normal thought process present Skin: COMMON NORMALS: no rashes or lesions noted and no wounds GENERAL SKIN EXAM: no rashes or lesions noted Course Vital Signs: Vital signs: Vital Signs Temperature 97.6 F 02/13/22 03:13 Respiratory Rate 16 02/13/22 03:13 Blood Pressure 131/77 02/13/22 03:13 MDM - Abdominal Pain Medical Decision Making Patient presents here with abdominal pain is likely due to full bladder as it improved after he urinated his exam here is benign he has no tenderness blood work is normal his rectal exam showed no blood in the stool he has been pain- free while here he is stable for discharge is to follow-up with PCP and return if worsening he understands agrees to plan. Lab Data : 02/13/22 03:34 02/13/22 03:34 Labs/Radiology: Laboratory Results WBC 4.5 10^3/uL (4.0-10.0) 02/13/22 03:34 RBC 4.38 10^6/uL (4.1-5.3) 02/13/22 03:34 Hgb 14.2 g/dL (11.7-16.6) 02/13/22 03:34 Hct 41.5 % (42.0-52.0) L 02/13/22 03:34 MCV 94.7 fl (80-94) H 02/13/22 03:34 MCH 32.4 pg (28.0-34.0) 02/13/22 03:34 MCHC 34.2 g/dL (30.0-36.0) 02/13/22 03:34 RDW 12.6 % (12.1-15.1) 02/13/22 03:34 Plt Count 172 10^3/cmm (130-400) 02/13/22 03:34 MPV 10.9 fL (7.4-10.4) H 02/13/22 03:34 Neut % (Auto) 56.2 % 02/13/22 03:34 Lymph % (Auto) 32.1 % 02/13/22 03:34 [place] % (Auto) 7.9 % 02/13/22 03:34 Eos % (Auto) 2.5 % 02/13/22 03:34 Baso % (Auto) 1.1 % 02/13/22 03:34 Neut # (Auto) 2.50 10^3/uL (1.8-7.7) 02/13/22 03:34 Lymph # (Auto) 1.4 10^3/uL (0.8-4.8) 02/13/22 03:34 [place] # (Auto) 0.4 10^3/uL (0.2-0.9) 02/13/22 03:34 Eos # (Auto) 0.1 10^3/uL (0.0-0.8) 02/13/22 03:34 Baso # (Auto) 0.1 10^3/uL (0.0-0.1) 02/13/22 03:34 Nucleated RBC % (auto) 0 % 02/13/22 03:34 Nucleated RBCs # 0.0 /100WBC 02/13/22 03:34 PT 12.60 SECONDS (12.1-14.9) 02/13/22 03:34 INR 0.92 (0.8-1.2) 02/13/22 03:34 Sodium 139 mmol/L (136-145) 02/13/22 03:34 Potassium 4.6 mmol/L (3.5-5.1) 02/13/22 03:34 Chloride 104 mmol/L (98-107) 02/13/22 03:34 Carbon Dioxide 25 mmol/L (22-29) 02/13/22 03:34 Anion Gap 14.6 (5-19) 02/13/22 03:34 BUN 19 mg/dL (8-23) 02/13/22 03:34 Creatinine 0.9 mg/dL (0.7-1.2) 02/13/22 03:34 GFR Calculation 83.7 mL/min (90-130) L 02/13/22 03:34 Glucose 155 mg/dL (65-115) H 02/13/22 03:34 Calculated Osmolality 293 mOsm/kg (285-295) 02/13/22 03:34 Calcium 9.3 mg/dL (8.5-10.5) 02/13/22 03:34 Total Bilirubin 0.4 mg/dL (0.15-1.2) 02/13/22 03:34 AST 17 U/L (0-40) 02/13/22 03:34 ALT 14 U/L (0-41) 02/13/22 03:34 Alkaline Phosphatase 82 IU/L (40-130) 02/13/22 03:34 Total Protein 6.9 g/dL (6.6-8.7) 02/13/22 03:34 Albumin 4.5 g/dL (3.5-5.2) 02/13/22 03:34 Globulin 2.4 g/dL (1.3-4.6) 02/13/22 03:34 Lipase 70 U/L (13-60) H 02/13/22 03:34 Discharge Plan Discharge Patient Disposition: Home Clinical Impression: Abdominal pain Qualifiers: Abdominal location: periumbilical Qualified Code(s): R10.33 - Periumbilical pain Condition: Stable Prescriptions: No Action aspirin [Adult Low Dose Aspirin] 81 mg tablet,delayed release (DR/EC) 81 mg PO DAILY 0RF insulin aspart U-100 [Novolog Flexpen U-100 Insulin] 100 unit/mL (3 mL) insulin pen See Rx Instructions .ROUTE .COMPLEX 0RF Rx Instructions: SLIDING SCALE 5-15 UNITS subcutaneously TID BEFORE MEALS Lantus Solostar U-100 Insulin 100 unit/mL (3 mL) insulin pen 35 unit SUBCUT QAM 0RF metoprolol tartrate 100 mg tablet 100 mg PO BID 0RF metformin 1,000 mg tablet 1,000 mg PO BID 0RF trazodone 100 mg tablet 150 mg PO BEDTIME 0RF (DME) [facility] Brace See Rx Instructions .Route .MEDSUPPLY Qty: 1 0RF Rx Instructions: As directed clopidogrel [Plavix] 75 mg tablet 75 mg PO DAILY Qty: 90 3RF atorvastatin 80 mg Tablet 80 mg PO DAILY 0RF meloxicam 7.5 mg Tablet 7.5 mg PO DAILY 0RF amlodipine 5 mg tablet 5 mg PO BID 0RF lisinopril 40 mg tablet 40 mg PO DAILY@04 0RF Discharge Orders: Discharge ED (Routine); Ordered 02/13/22 Ordered By: Arlyn Finnegan Referrals: Jane Gupta MD [Primary Care Provider] - 1-3 days Discharge Diet: Advance as tolerated Discharge Activity: Resume usual activity Patient Instructions: Abdominal Pain (ED) Coding Level of Care Code ED Cell Assembly Pinner for Servando Fwnishi Exam Comprehensive
[2022-02-13 03:42] LABS: Basophils # 0.1 10^3/uL (0.0-0.1); Basophils % 1.1 %; Eosinophils # 0.1 10^3/uL (0.0-0.8); Eosinophils % 2.5 %; Hematocrit 41.5 % (42.0-52.0); Hemoglobin 14.2 g/dL (11.7-16.6); Lymphocytes # 1.4 10^3/uL (0.8-4.8); Lymphocytes % 32.1 %; Mean Corpuscular HGB Conc 34.2 g/dL (30.0-36.0); Mean Corpuscular Hemoglobin 32.4 pg (28.0-34.0); Mean Corpuscular Volume 94.7 fl (80-94); Mean Platelet Volume 10.9 fL (7.4-10.4); Monocytes # 0.4 10^3/uL (0.2-0.9); Monocytes % 7.9 %; Neutrophils % 56.2 %; Nucleated Red Blood Cells % 0 %; Platelet Count 172 10^3/cmm (130-400); Red Blood Count 4.38 10^6/uL (4.1-5.3); Red Cell Distribution Width 12.6 % (12.1-15.1); White Blood Count 4.5 10^3/uL (4.0-10.0)
[2022-02-13 03:58] LABS: INR 0.92 (0.8-1.2)
[2022-02-13 04:11] LABS: Alanine Aminotransferase 14 U/L (0-41); Albumin Level 4.5 g/dL (3.5-5.2); Alkaline Phosphatase 82 IU/L (40-130); Anion Gap 14.6 (5-19); Aspartate Amino Transferase 17 U/L (0-40); Blood Urea Nitrogen 19 mg/dL (8-23); Calcium 9.3 mg/dL (8.5-10.5); Carbon Dioxide 25 mmol/L (22-29); Chloride 104 mmol/L (98-107); Creatinine Clr Calc Pharmacy 89.8163; Globulin 2.4 g/dL (1.3-4.6); Glomerular Filtration Rate 83.7 mL/min (90-130); Glucose 155 mg/dL (65-115); Lipase 70 U/L (13-60); Osmolality Calculated 293 mOsm/kg (285-295); Potassium 4.6 mmol/L (3.5-5.1); Sodium 139 mmol/L (136-145); Total Bilirubin 0.4 mg/dL (0.15-1.2); Total Protein 6.9 g/dL (6.6-8.7)
== END 2022-02-13 04:33 | disposition home or self-care (01) ==
PROVIDERS: Emergency Provider Emergency Medicine; PCP Family Medicine
DX: R10.33 Periumbilical pain (principal); Z79.84 Long term (current) use of oral hypoglycemic drugs; Z79.02 Long term (current) use of antithrombotics/antiplatelets; Z79.82 Long term (current) use of aspirin; Z79.4 Long term (current) use of insulin; I25.10 Atherosclerotic heart disease of native coronary artery without angina pectoris; I10 Essential (primary) hypertension; E78.5 Hyperlipidemia, unspecified; E11.9 Type 2 diabetes mellitus without complications; Z87.891 Personal history of nicotine dependence
CPT/HCPCS: 80053; 83690; 85025; 85610; 99283

== ENCOUNTER → 2022-03-08 13:57 | Outpatient (BNVA) | payer OTHER, SELFPAY | PROVIDERS: PCP Family Medicine; Visit Provider Thoracic Surgery (Cardiothoracic Vascular Surgery) | DX: I71.4 Abdominal aortic aneurysm, without rupture (principal) | CPT/HCPCS: 99213 ==

== ENCOUNTER → 2022-03-14 10:10 | Outpatient (BNVA) | payer OTHER, SELFPAY | PROVIDERS: PCP Family Medicine; Visit Provider Surgery | DX: K21.9 Gastro-esophageal reflux disease without esophagitis (principal); R19.5 Other fecal abnormalities; R10.13 Epigastric pain | CPT/HCPCS: 99213 ==

== ENCOUNTER → 2022-04-27 09:57 | Outpatient (BNVA) | payer OTHER, SELFPAY | PROVIDERS: PCP Family Medicine; Visit Provider Internal Medicine | DX: I10 Essential (primary) hypertension (principal); I25.10 Atherosclerotic heart disease of native coronary artery without angina pectoris; Z87.891 Personal history of nicotine dependence; E78.5 Hyperlipidemia, unspecified; E11.9 Type 2 diabetes mellitus without complications; Z79.4 Long term (current) use of insulin; Z79.84 Long term (current) use of oral hypoglycemic drugs | CPT/HCPCS: 99214 ==

== ENCOUNTER 2022-06-25 06:54 | Day surgery (SDC) | payer OTHER, SELFPAY ==
[2022-06-21 13:53] VITALS: BMI 32.5
--- NOTE | 2022-06-25 06:13 | P.HP_ITS ---
Same Day Surgery H&P Indication for Procedure/HPI DATE OF PROCEDURE: June 25, 2022 CHIEF COMPLAINT/INDICATIONFOR SURGICAL PROCEDURE: Problem with swallowing PREOP DIAGNOSIS: NSTEMI PLANNED PROCEDURE: Operation Date: 06/25/22 08:30 Proposed Procedures p EGD 51379,K21.9(Not Applicable) - Reynold Finley MD 03/14/2022 This is a pleasant 71 years old gentleman presents with history of dark stools and epigastric abdominal pain that gets worse with spicy food and being sharp in nature, nothing seems to make it better and is not being referred.? Patient had a colonoscopy before couple of years and was unremarkable.? He denies any intake of iron pills.? Patient was referred to my practice for consideration of diagnostic EGD. 06/25/2022 Patient comes today for scheduled diagnostic EGD. ROS All systems have been reviewed negative except as for the above or per problem l ist. Medications/Allergies* Home Medications Medication Instructions Recorded Confirmed Type insulin aspart U-100 100 unit/mL See Rx Instructions .Route .COMPLEX 11/23/20 06/25/22 History (3 mL) subcutaneous pen (Novolog Flexpen U-100 Insulin aspart) insulin glargine 100 unit/mL (3 35 unit SUBCUT QPM 11/23/20 06/25/22 History mL) subcutaneous pen (Lantus Solostar U-100 Insulin) metformin 1,000 mg tablet 1,000 mg PO BID 11/23/20 06/25/22 History metoprolol tartrate 100 mg tablet 100 mg PO BID 11/23/20 06/25/22 History aspirin 81 mg tablet,delayed 81 mg PO DAILY 10/20/21 06/25/22 History release (Adult Low Dose Aspirin) amlodipine 5 mg tablet 5 mg PO BID 01/03/22 06/25/22 History atorvastatin 80 mg tablet 80 mg PO DAILY 01/03/22 06/25/22 History lisinopril 40 mg tablet 40 mg PO DAILY@04 01/03/22 06/25/22 History meloxicam 7.5 mg tablet 7.5 mg PO DAILY 01/03/22 06/25/22 History Allergies/Adverse Reactions Allergy/AdvReac Type Severity Reaction Status Date / Time No Known Allergies Allergy Verified 06/25/22 07:26 Pertinent History/Comorbid Conditions* Medical History (Updated 03/14/22 @ 16:42 by Reynold Finley MD) Abdominal aortic aneurysm, without rupture Allergic rhinitis, unspecified Atherosclerosis of coronary artery Benign prostatic hyperplasia without lower urinary tract symptoms Cervicalgia Chronic laryngitis Essential (primary) hypertension Generalized anxiety disorder Hyperlipidemia, unspecified Insomnia, unspecified Low back pain Obesity, unspecified Obstructive sleep apnea (adult) (pediatric) Pain in left arm Type 2 diabetes mellitus without complications Unspecified chronic gastritis without bleeding Family History (Updated 03/14/22 @ 10:33 by Kim Gatica MA) Cancer Social History Smoking and tobacco status: former smoker Quit status (tobacco): has quit using tobacco Year quit tobacco: 2011 Former quit date comment: 1 1/2 PER DAY X 25 YEARS Alcohol intake: former Pertinent Exam Findings alert, oriented x 3, regular rate & rhythm and procedure specific exam findings (Abdominal exam nontender nondistended soft) Recommendations Surgery/Procedure today (Diagnostic EGD with possible biopsy) Coding Level of Care Code Acute Human Resources Operations Specialist for Servando Ortiz
[2022-06-25 07:10] VITALS: BP 103/89; PULSE 59; RESP 18; TEMP 36.1; O2SAT 96
[2022-06-25] MEDS: sodium chloride 0.9% 1,000 ML 30 ML IV (07:16)
[2022-06-25 07:25] LABS: Glucose Point of Care 158 mg/dL (70-110)
--- NOTE | 2022-06-25 08:11 | P.ANESASSM_ITS ---
Pre-Anesthetic Assessment Height/Weight: Height 1.75 m Weight 99.79 kg Temp Pulse Resp BP Pulse Ox O2 Del Method 97.0 F L 59 L 18 103/89 96 06/25/22 07:10 06/25/22 07:10 06/25/22 07:10 06/25/22 07:10 06/25/22 07:10 06/25/22 07:10 Preop Diagnosis: Epigastric pain and dark stool Operation Date: 06/25/22 08:30 Proposed Procedures p EGD 81474,K21.9(Not Applicable) - Reynold Finley MD Was Beta Too taken within 24 hours: Yes Last intake: Intake Last Liquid Date 06/24/22 Last Liquid Time 20:00 Last Solid Date 06/24/22 Last Solid Time 12:00 Social No alcohol and No tobacco Exam alert, oriented x 3, clear to auscultation bilaterally and regular rate & rhythm Airway Submandibular: within normal limits Cervical ROM: within normal limits Mallampati: Class II Dentition: full History/ROS No significant history except as noted and No significant complaints Pulmonary Cough and Sleep Apnea CV/HEM Coronary Artery Disease, Hypertension and Myocardial Infarction Aortic aneurysm None reported Hepatic None reported GI Gastroesophageal Reflux Disease Metabolic Diabetes Mellitus and Morbid Obesity [facility] [place] None reported Neuropsych None reported Anesthetic Plan ASA status: 3 Anesthesia: Anesthesia Evaluation and MAC Risk of > 500 ml blood loss (7ml/kg in children): No Medications/Allergies Home Medications Medication Instructions Recorded Confirmed Last Taken Type CMC Brace #1 ea 11/23/20 06/25/22 Unknown Rx insulin aspart U-100 100 unit/mL See Rx Instructions .Route .COMPLEX 11/23/20 06/25/22 06/24/22 History (3 mL) subcutaneous pen (Novolog Flexpen U-100 Insulin aspart) insulin glargine 100 unit/mL (3 35 unit SUBCUT QPM 11/23/20 06/25/22 06/24/22 History mL) subcutaneous pen (Lantus Solostar U-100 Insulin) metformin 1,000 mg tablet 1,000 mg PO BID 11/23/20 06/25/22 06/21/22 History metoprolol tartrate 100 mg tablet 100 mg PO BID 11/23/20 06/25/22 06/25/22 History aspirin 81 mg tablet,delayed 81 mg PO DAILY 10/20/21 06/25/22 06/20/22 History release (Adult Low Dose Aspirin) clopidogrel 75 mg tablet (Plavix) 75 mg PO DAILY #90 tabs 10/27/21 06/25/22 06/20/22 Rx amlodipine 5 mg tablet 5 mg PO BID 01/03/22 06/25/22 06/25/22 History atorvastatin 80 mg tablet 80 mg PO DAILY 01/03/22 06/25/22 06/22/22 History lisinopril 40 mg tablet 40 mg PO DAILY@04 01/03/22 06/25/22 06/25/22 History meloxicam 7.5 mg tablet 7.5 mg PO DAILY 01/03/22 06/25/22 06/22/22 History Allergies Allergy/AdvReac Type Severity Reaction Status Date / Time No Known Allergies Allergy Verified 06/25/22 07:26 Current Medications Generic Name Dose Route Start Last Admin Trade Name Freq PRN Reason Stop Dose Admin Sodium Chloride 1,000 mls @ 30 mls/hr 06/25/22 07:00 06/25/22 07:16 Sodium Chloride 0.9% IV 06/26/22 06:59 30 mls/hr .Q24H MARA Administration PFSH Anesthesia Medical History Abdominal aortic aneurysm, without rupture Allergic rhinitis, unspecified Atherosclerosis of coronary artery Benign prostatic hyperplasia without lower urinary tract symptoms Cervicalgia Chronic laryngitis Essential (primary) hypertension Generalized anxiety disorder Hyperlipidemia, unspecified Insomnia, unspecified Low back pain Obesity, unspecified Obstructive sleep apnea (adult) (pediatric) Pain in left arm Type 2 diabetes mellitus without complications Unspecified chronic gastritis without bleeding Family History Other Cancer Social History Smoking and tobacco status: former smoker Quit status (tobacco): has quit using tobacco Year quit tobacco: 2011 Former quit date comment: 1 1/2 PER DAY X 25 YEARS Alcohol intake: former Data Anesthesia Cardiac Studies: Echocardiogram 03/30/21
[2022-06-25 08:28] VITALS: BP 122/74; PULSE 58; RESP 16; O2SAT 95
[2022-06-25 08:34] VITALS: BP 117/69; RESP 18; O2SAT 95
--- NOTE | 2022-06-25 15:33 | ANE.PACU2 ---
Inpatient post-anesthesia follow up: Airway intact: Yes Vital signs: Temperature 97.0 F Pulse Rate 58 Respiratory Rate 18 Blood Pressure 117/69 Pulse Oximetry 95 Oxygen Delivery Me thod Nasal Cannula Oxygen Flow Rate 2 Fraction of Inspir ed Oxygen Hydration adequate: Yes Nausea and vomiting: No Pain level: 1 Mental status: Baseline
== END 2022-06-25 09:02 | disposition home or self-care (01) ==
PROVIDERS: PCP Family Medicine; Visit Provider Surgery
PROC: 0DJ08ZZ Inspection of Upper Intestinal Tract, Via Natural or Artificial Opening Endoscopic (ICD-10-PCS; CPT 43235; principal; 2022-06-25 08:30)
DX: K21.9 Gastro-esophageal reflux disease without esophagitis (principal); E11.9 Type 2 diabetes mellitus without complications; Z79.4 Long term (current) use of insulin; Z79.84 Long term (current) use of oral hypoglycemic drugs; Z79.82 Long term (current) use of aspirin; I10 Essential (primary) hypertension; E66.9 Obesity, unspecified; Z68.32 Body mass index [BMI] 32.0-32.9, adult; G47.33 Obstructive sleep apnea (adult) (pediatric)
CPT/HCPCS: 36416; 43239; 82962; 88305; J2704; J7030

== ENCOUNTER → 2022-07-03 13:43 | Outpatient (BNVA) | payer OTHER, SELFPAY | PROVIDERS: PCP Family Medicine; Visit Provider Surgery | DX: K29.90 Gastroduodenitis, unspecified, without bleeding (principal); K20.90 Esophagitis, unspecified without bleeding | CPT/HCPCS: 99213 ==

== ENCOUNTER 2022-08-13 07:45 | Outpatient (CLI) | payer OTHER, SELFPAY ==
--- NOTE | 2022-08-13 08:00 | USCV_ITS ---
Arun Higginbotham Age: 72 Gender: M : 1950 Exam Date: 08/13/2022 08:05 Ordering Phys: Niko Rockwell MD (Andy) ([email or web address]) Technologist: Lamine Garland Exam Location: [facility] [place] Indication: AAA HISTORY: Diameter (cm) AP x Transverse x Length Velocity (cm/s) Waveform Prox Aorta: 2.19 x 2.18 x 79.00 Mid Aorta: 1.64 x 1.89 x 63.80 Distal Aorta: 3.87 x 3.77 x 79.00 Right Iliac Prox: 1.48 x 1.51 x 109.50 Left Iliac Prox: 1.00 x 0.81 x 160.80 Stent Prox Landing x x Aneurysmal Sac Max x x Lt Lat Sac Dim Rt Lat Sac Dim Stent Dist Landing x x Right Iliac Stent x x Left Iliac Stent x x Right Renal Art Left Renal Art FINDINGS: comp 04/18/20 CONCLUSIONS AAA distal abdominal aorta measuring 3.8 x 3.7cm. Mild atheromatous plaque. This is progressed since 2019 where it measured 3.0 x 2.5cm. Consider CTA in further evaluation. Ectatic right common iliac measuring 1.5cm. Normal left common iliac. Singh Ramirez MD (Electronically Signed) Final Date: 13 August 2022 09:28 S
== END 2022-08-13 07:46 | disposition home or self-care (01) ==
LOC: RAD 07:50
PROVIDERS: PCP Family Medicine; Visit Provider Thoracic Surgery (Cardiothoracic Vascular Surgery)
DX: I71.40 Abdominal aortic aneurysm, without rupture, unspecified (principal)
CPT/HCPCS: 93978

== ENCOUNTER → 2022-09-14 13:59 | Outpatient (BNVA) | payer OTHER, SELFPAY | PROVIDERS: PCP Family Medicine; Visit Provider Thoracic Surgery (Cardiothoracic Vascular Surgery) | DX: I96 Gangrene, not elsewhere classified (principal); E11.622 Type 2 diabetes mellitus with other skin ulcer; L97.812 Non-pressure chronic ulcer of other part of right lower leg with fat layer exposed | CPT/HCPCS: 97597; 99213; A6210 ==

== ENCOUNTER → 2022-09-21 14:27 | Outpatient (BNVA) | payer OTHER, SELFPAY | PROVIDERS: PCP Family Medicine; Visit Provider Thoracic Surgery (Cardiothoracic Vascular Surgery) | DX: I96 Gangrene, not elsewhere classified (principal); E11.621 Type 2 diabetes mellitus with foot ulcer; L97.812 Non-pressure chronic ulcer of other part of right lower leg with fat layer exposed | CPT/HCPCS: 97597 ==

== ENCOUNTER → 2022-09-28 15:02 | Outpatient (BNVA) | payer OTHER, SELFPAY | PROVIDERS: PCP Family Medicine; Visit Provider Nurse Practitioner Family | DX: I96 Gangrene, not elsewhere classified (principal); E11.622 Type 2 diabetes mellitus with other skin ulcer; L97.812 Non-pressure chronic ulcer of other part of right lower leg with fat layer exposed | CPT/HCPCS: 99212 ==

== ENCOUNTER → 2022-10-04 08:50 | Outpatient (BNVA) | payer OTHER, SELFPAY | PROVIDERS: PCP Family Medicine; Visit Provider Thoracic Surgery (Cardiothoracic Vascular Surgery) | DX: I71.43 Infrarenal abdominal aortic aneurysm, without rupture (principal); Z79.82 Long term (current) use of aspirin | CPT/HCPCS: 99213 ==

== ENCOUNTER → 2022-10-26 10:26 | Outpatient (BNVA) | payer OTHER, SELFPAY | PROVIDERS: PCP Family Medicine; Visit Provider Internal Medicine | DX: I25.10 Atherosclerotic heart disease of native coronary artery without angina pectoris (principal); E11.9 Type 2 diabetes mellitus without complications; I10 Essential (primary) hypertension; E78.5 Hyperlipidemia, unspecified; Z87.891 Personal history of nicotine dependence; Z79.4 Long term (current) use of insulin; Z79.82 Long term (current) use of aspirin | CPT/HCPCS: 99214 ==

== ENCOUNTER 2023-01-21 06:03 | Outpatient (CLI) | payer OTHER, SELFPAY ==
--- NOTE | 2023-01-21 06:15 | USCV_ITS ---
Neftaly Arun Age: 72 Gender: M : 1950 Exam Date: 01/21/2023 06:16 Ordering Phys: Niko Rockwell MD (Andy) ([email or web address]) Technologist: CT Exam Location: [facility] [place] Indication: AAA HISTORY: Diameter (cm) AP x Transverse x Length Velocity (cm/s) Waveform Prox Aorta: 2.45 x 2.51 x 60.90 Mid Aorta: 2.48 x 2.29 x 55.50 Distal Aorta: 3.66 x 3.81 x 68.00 Right Iliac Prox: 1.15 x 1.31 x 81.20 Left Iliac Prox: 1.49 x 1.33 x 146.10 Stent Prox Landing x x Aneurysmal Sac Max x x Lt Lat Sac Dim Rt Lat Sac Dim Stent Dist Landing x x Right Iliac Stent x x Left Iliac Stent x x Right Renal Art Left Renal Art FINDINGS: CONCLUSIONS AAA measuring 3.6 x 3.8cm AP x transverse stable compared to 08/13/22 Ectatic Left iliac 1.5cm Normal Right iliac Singh Ramirez MD (Electronically Signed) Final Date: 21 January 2023 09:06 S
== END 2023-01-21 06:04 | disposition home or self-care (01) ==
PROVIDERS: PCP Family Medicine; Visit Provider Thoracic Surgery (Cardiothoracic Vascular Surgery)
DX: I71.40 Abdominal aortic aneurysm, without rupture, unspecified (principal); I10 Essential (primary) hypertension; E78.5 Hyperlipidemia, unspecified
CPT/HCPCS: 93978

== ENCOUNTER → 2023-02-21 08:40 | Outpatient (BNVA) | payer OTHER, SELFPAY | PROVIDERS: PCP Family Medicine; Visit Provider Thoracic Surgery (Cardiothoracic Vascular Surgery) | DX: I71.43 Infrarenal abdominal aortic aneurysm, without rupture (principal) | CPT/HCPCS: 99213 ==

== ENCOUNTER 2023-03-06 17:43 | Emergency (ER) | payer OTHER, SELFPAY ==
[2023-03-06 18:08] VITALS: BP 163/88; PULSE 84; RESP 18; TEMP 36.4; O2SAT 95; BMI 30.2
[2023-03-06 19:39] LABS: Basophils # 0.1 10^3/uL (0.0-0.1); Basophils % 0.8 %; Eosinophils # 0.1 10^3/uL (0.0-0.8); Eosinophils % 1.9 %; Hematocrit 42.5 % (42.0-52.0); Hemoglobin 14.9 g/dL (11.7-16.6); Lymphocytes # 1.7 10^3/uL (0.8-4.8); Lymphocytes % 26.9 %; Mean Corpuscular HGB Conc 35.1 g/dL (30.0-36.0); Mean Corpuscular Hemoglobin 32.7 pg (28.0-34.0); Mean Corpuscular Volume 93.4 fl (80-94); Mean Platelet Volume 10.5 fL (7.4-10.4); Monocytes # 0.5 10^3/uL (0.2-0.9); Neutrophils # 3.88 10^3/uL (1.8-7.7); Neutrophils % 62.2 %; Nucleated Red Blood Cells % 0 %; Platelet Count 159 10^3/cmm (130-400); Red Blood Count 4.55 10^6/uL (4.1-5.3); White Blood Count 6.2 10^3/uL (4.0-10.0)
[2023-03-06 19:40] LABS: Erythrocyte Sedimentation Rate 1 mm/hr (0-10)
--- NOTE | 2023-03-06 20:23 | W.ED.SKABFB ---
HPI - Skin/Abscess/Foreign Bdy General: Chief complaint: Skin/Abscess/Foreign Body Stated complaint: RT foot insect bite Time Seen by Provider: 03/06/23 20:23 History of Present Illness: 72-year-old male patient has to the dorsal right foot a poorly healing wound. Patient believes about 3 weeks ago he was bit on the top of the foot by a spider that had made a nest in his boot. Patient reports he developed a little bit of eschar on the dorsal part of his foot and has some redness that has developed over the last 2 to 3 days. Patient denies any fever or chills. Patient appears nontoxic. Review of Systems General: Reports: 10 or more systems reviewed and unremarkable except in HPI and below Skin/Breast: Reports: non-healing lesions PFSH ED PFSH: Medical History Abdominal aortic aneurysm, without rupture Allergic rhinitis, unspecified Atherosclerosis of coronary artery Benign prostatic hyperplasia without lower urinary tract symptoms Cervicalgia Chronic laryngitis Essential (primary) hypertension Generalized anxiety disorder Hyperlipidemia, unspecified Insomnia, unspecified Low back pain Obesity, unspecified Obstructive sleep apnea (adult) (pediatric) Pain in left arm Type 2 diabetes mellitus without complications Unspecified chronic gastritis without bleeding Family History Other Cancer Social History Smoking and tobacco status: former smoker Quit status (tobacco): has quit using tobacco Year quit tobacco: 2011 Former quit date comment: 1 1/2 PER DAY X 25 YEARS Alcohol intake: former Physical Exam Const: COMMON NORMALS: alert HENMT: COMMON NORMALS: normocephalic HEAD & SCALP: normocephalic Chest: COMMONS NORMALS: normal inspection of the chest Resp: COMMON NORMALS: normal respiratory effort and clear to auscultation bilaterally AUSCULTATION: clear to auscultation bilaterally Cardio: COMMON NORMALS: regular rate and regular rhythm RATE: regular rate RHYTHM: regular rhythm GI: COMMON NORMALS: non-tender Extremity: RIGHT LOWER EXTREMITY: Yes foot & digits (1 cm circular lesion dry eschar center) Neuro: SENSORIUM/ORIENTATION: Yes alert Skin: WOUNDS: Yes wounds noted (Dorsal right foot) size (1 cm), drainage (None), without odor and with surrounding erythema Course Vital Signs: Vital signs: Vital Signs Temperature 97.5 F L 03/06/23 18:08 Pulse Rate 84 03/06/23 18:08 Respiratory Rate 18 03/06/23 18:08 Blood Pressure 163/88 03/06/23 18:08 Pulse Oximetry 95 03/06/23 18:08 Oxygen Delivery Me thod Room Air 03/06/23 18:08 MDM - Skin/Abscess/Foreign Bdy Medicial Decision Making 72-year-old male patient comes in with a wound to the dorsal part of his right foot. On exam patient has a 1 cm dry eschar lesion to the central foot with surrounding erythema. Differential diagnosis includes wound infection, cellulitis, osteomyelitis, diabetic ulcer. It sounds like patient's probably had a recluse spider bite. Patient has a dark brownish eschar lesion is approximately 1 cm to the dorsal right foot. Recommend patient use peroxide to the eschar twice a day to clean it and then apply ointment and cover. Recommend patient do this until follow-up with health it specialist for further evaluation and treatment. Patient reported understanding and agreed to plan. Lab Data 03/06/23 19:22 Laboratory Results WBC 6.2 10^3/uL (4.0-10.0) 03/06/23 19: RBC 4.55 10^6/uL (4.1-5.3) 03/06/23 19:22 Hgb 14.9 g/dL (11.7-16.6) 03/06/23 19:22 Hct 42.5 % (42.0-52.0) 03/06/23 19: MCV 93.4 fl (80-94) 03/06/23 19:22 MCH 32.7 pg (28.0-34.0) 03/06/23 19: MCHC 35.1 g/dL (30.0-36.0) 03/06/23 19:22 RDW 13.0 % (12.1-15.1) 03/06/23 19:22 Plt Count 159 10^3/cmm (130-400) 03/06/23 19:22 MPV 10.5 fL (7.4-10.4) H 03/06/23 19:22 Neut % (Auto) 62.2 % 03/06/23 19:22 Lymph % (Auto) 26.9 % 03/06/23 19:22 [place] % (Auto) 8.0 % 03/06/23 19:22 Eos % (Auto) 1.9 % 03/06/23 19:22 Baso % (Auto) 0.8 % 03/06/23 19:22 Neut # (Auto) 3.88 10^3/uL (1.8-7.7) 03/06/23 19:22 Lymph # (Auto) 1.7 10^3/uL (0.8-4.8) 03/06/23 19:22 [place] # (Auto) 0.5 10^3/uL (0.2-0.9) 03/06/23 19:22 Eos # (Auto) 0.1 10^3/uL (0.0-0.8) 03/06/23 19: Baso # (Auto) 0.1 10^3/uL (0.0-0.1) 03/06/23 19: Nucleated RBC % (auto) 0 % 03/06/23 19: Nucleated RBCs # 0.0 /100WBC 03/06/23 19: ESR 1 mm/hr (0-10) 03/06/23 19: C-Reactive Protein 3.0 mg/L (0.0-4.9) 03/06/23 19:22 Discharge Plan Discharge Patient Disposition: Home Clinical Impression: Wound eschar of foot Condition: Stable Prescriptions: New Cipro 500 mg tablet 500 mg PO BID Qty: 14 0RF No Action insulin aspart U-100 [Novolog FlexPen U-100 Insulin] 100 unit/mL (3 mL) insulin pen See Rx Instructions .ROUTE .COMPLEX Rx Instructions: SLIDING SCALE 5-15 UNITS subcutaneously TID BEFORE MEALS metoprolol tartrate 100 mg tablet 100 mg PO BID metformin 1,000 mg tablet 1,000 mg PO BID (DME) CMC Brace See Rx Instructions .Route .MEDSUPPLY Qty: 1 0RF Rx Instructions: As directed Lantus Solostar U-100 Insulin 100 unit/mL (3 mL) insulin pen 25 unit SUBCUT QPM clopidogrel [Plavix] 75 mg tablet 75 mg PO DAILY Qty: 90 3RF Hold Instructions: Resume on 06/29/22. meloxicam 7.5 mg Tablet 7.5 mg PO DAILY Hold Instructions: Resume on 06/29/22. amlodipine 5 mg tablet 5 mg PO BID lisinopril 40 mg tablet 20 mg PO DAILY@04 Discharge Orders: Discharge ED (Routine); Ordered 03/06/23 Ordered By: Niko Magana Referrals: Jane Gupta MD [Primary Care Provider] - Discharge Diet: Usual diet Discharge Activity: Increase activity as tolerated Patient Instructions: Wound Care (General) Activity Restrictions/Additional Instructions: Clean wound twice a day with a saturated cottonball and hydrogen peroxide, cover wound with mupirocin ointment and dress. Take oral antibiotics as directed. Follow-up with health it specialist for further evaluation and treatment. Coding Level of Care Code ED Laundry Tub Maker for Servando Ortiz
[2023-03-06] MEDS: mupirocin oint 22 gm 1 APPLIC TOPICAL (20:49)
[2023-03-06] MEDS: ciprofloxacin 500 mg Tablet PO (20:49)
--- NOTE | 2023-03-07 08:44 | DCPLANNER ---
Addendum entered by Debo Dorsey 03/20/23 14:16: Patient had a follow up appointment at wound care - patient did attend appointment. Addendum entered by Debo Dorsey 03/07/23 10:57: soda fountain manager received the following message from the wound care clinic regarding follow up appointment: Spoke with his he will call back to set up an appt time and date! Thank you Original Note: soda fountain manager had message to schedule a follow up appointment for patient with wound care. soda fountain manager sent patients information to the front office staff at wound care. Patients information will be printed and reviewed. Clinic will call patient with appointment information.
== END 2023-03-06 20:48 | disposition home or self-care (01) ==
PROVIDERS: Emergency Provider Nurse Practitioner Family; PCP Family Medicine
DX: S90.861A Insect bite (nonvenomous), right foot, initial encounter (principal); W57.XXXA Bitten or stung by nonvenomous insect and other nonvenomous arthropods, initial encounter
CPT/HCPCS: 36415; 85025; 85651; 86140; 99283

== ENCOUNTER → 2023-03-15 12:58 | Outpatient (BNVA) | payer OTHER, SELFPAY | PROVIDERS: PCP Family Medicine; Visit Provider Thoracic Surgery (Cardiothoracic Vascular Surgery) | DX: I96 Gangrene, not elsewhere classified (principal); L97.512 Non-pressure chronic ulcer of other part of right foot with fat layer exposed | CPT/HCPCS: 97597; A6212 ==

== ENCOUNTER → 2023-03-22 14:01 | Outpatient (BNVA) | payer OTHER, SELFPAY | PROVIDERS: PCP Family Medicine; Visit Provider Thoracic Surgery (Cardiothoracic Vascular Surgery) | DX: I96 Gangrene, not elsewhere classified (principal); L97.512 Non-pressure chronic ulcer of other part of right foot with fat layer exposed | CPT/HCPCS: 97597; A6021; A6212 ==

== ENCOUNTER → 2023-03-29 09:14 | Outpatient (BNVA) | payer OTHER, SELFPAY | PROVIDERS: PCP Family Medicine; Visit Provider Thoracic Surgery (Cardiothoracic Vascular Surgery) | DX: Z09 Encounter for follow-up examination after completed treatment for conditions other than malignant neoplasm (principal) | CPT/HCPCS: 99212 ==

== ENCOUNTER → 2023-04-26 11:36 | Outpatient (BNVA) | payer OTHER, SELFPAY | PROVIDERS: PCP Family Medicine; Visit Provider Nurse Practitioner Family | DX: I71.40 Abdominal aortic aneurysm, without rupture, unspecified (principal); I25.10 Atherosclerotic heart disease of native coronary artery without angina pectoris; I10 Essential (primary) hypertension; Z87.891 Personal history of nicotine dependence | CPT/HCPCS: 99214 ==

== ENCOUNTER 2023-07-24 06:01 | Outpatient (CLI) | payer OTHER, SELFPAY ==
--- NOTE | 2023-07-24 06:15 | USCV_ITS ---
Arun Higginbotham Age: 73 Gender: M : 1950 Exam Date: 07/24/2023 06:16 Ordering Phys: Niko Rockwell MD (Andy) ([email or web address]) Technologist: Exam Location: [facility] [place] Indication: hx of aaa HISTORY: Diameter (cm) AP x Transverse x Length Velocity (cm/s) Waveform Prox Aorta: 2.42 x 2.29 x 68.60 Mid Aorta: 3.61 x 3.52 x 71.90 Distal Aorta: 3.75 x 3.73 x 50.40 Right Iliac Prox: 1.72 x 2.31 x 135.50 Left Iliac Prox: 2.56 x 2.55 x 95.90 Stent Prox Landing x x Aneurysmal Sac Max x x Lt Lat Sac Dim Rt Lat Sac Dim Stent Dist Landing x x Right Iliac Stent x x Left Iliac Stent x x Right Renal Art Left Renal Art FINDINGS: Comp 01/21/23 CONCLUSIONS Distal AAA measuring 3.7 x 3.7cm is stable Moderate aortic atheromatous disease. Aneurysmal common iliac arteries measuring 1.7x 2.3cm right and 2.6 x 2.5cm left progressed compared to previous Singh Raimrez MD (Electronically Signed) Final Date: 24 July 2023 17:04 S
== END 2023-07-24 06:02 | disposition home or self-care (01) ==
LOC: RAD 06:02
PROVIDERS: PCP Family Medicine; Visit Provider Thoracic Surgery (Cardiothoracic Vascular Surgery)
DX: I71.40 Abdominal aortic aneurysm, without rupture, unspecified (principal); I70.0 Atherosclerosis of aorta; I72.3 Aneurysm of iliac artery
CPT/HCPCS: 93978

== ENCOUNTER → 2023-09-09 14:07 | Outpatient (BNVA) | payer OTHER, SELFPAY | PROVIDERS: PCP Family Medicine; Visit Provider Thoracic Surgery (Cardiothoracic Vascular Surgery) | DX: I71.43 Infrarenal abdominal aortic aneurysm, without rupture (principal) | CPT/HCPCS: 99213 ==

== ENCOUNTER → 2024-02-11 12:37 | Outpatient (BNVA) | payer OTHER, SELFPAY | PROVIDERS: PCP Family Medicine; Visit Provider Internal Medicine | DX: I10 Essential (primary) hypertension (principal); E11.9 Type 2 diabetes mellitus without complications; Z79.4 Long term (current) use of insulin; E78.5 Hyperlipidemia, unspecified; I25.10 Atherosclerotic heart disease of native coronary artery without angina pectoris; Z87.891 Personal history of nicotine dependence | CPT/HCPCS: 99214 ==

== ENCOUNTER → 2024-11-10 14:48 | Outpatient (BNVA) | payer MEDICARE, SELFPAY | PROVIDERS: PCP Family Medicine; Visit Provider Internal Medicine | DX: I10 Essential (primary) hypertension (principal); I25.10 Atherosclerotic heart disease of native coronary artery without angina pectoris; E78.5 Hyperlipidemia, unspecified; E11.9 Type 2 diabetes mellitus without complications; Z79.4 Long term (current) use of insulin; Z79.84 Long term (current) use of oral hypoglycemic drugs; Z87.891 Personal history of nicotine dependence; Z79.01 Long term (current) use of anticoagulants; I71.43 Infrarenal abdominal aortic aneurysm, without rupture | CPT/HCPCS: 99214 ==

== ENCOUNTER 2024-11-20 07:07 | Outpatient (CLI) | payer OTHER, SELFPAY ==
--- NOTE | 2024-11-20 07:45 | USCV_ITS ---
Neftaly Arun Age: 74 Gender: M : 1950 Exam Date: 11/20/2024 07:20 Ordering Phys: Jax Beal M.D ([email or web address]) Technologist: KRISHNA Exam Location: [facility] Indication: AAA HISTORY: Diameter (cm) AP x Transverse x Length Velocity (cm/s) Waveform Prox Aorta: 2.90 x 2.50 x 58.30 Mid Aorta: 4.60 x 4.30 x 53.80 Distal Aorta: 3.50 x 3.30 x 42.60 Right Iliac Prox: 1.38 x 1.80 x 154.00 Left Iliac Prox: 1.47 x 1.93 x 156.90 Stent Prox Landing x x Aneurysmal Sac Max x x Lt Lat Sac Dim Rt Lat Sac Dim Stent Dist Landing x x Right Iliac Stent x x Left Iliac Stent x x Right Renal Art Left Renal Art FINDINGS: comparison CONCLUSIONS Fusiform AAA in the mid and distal aorta measuring 4.6 x 4.3cm mid aorta and 3.5 x 3.3cm distal aorta. This could be further evaluated with CTA. Measurements are slightly progressed since 2023 Aneurysmal common iliac arteries Moderate atheromatous disease Singh Ramirez MD (Electronically Signed) Final Date: 20 Nov 2024 11:31 S
== END 2024-11-20 07:08 | disposition home or self-care (01) ==
PROVIDERS: PCP Family Medicine; Visit Provider Internal Medicine
DX: I71.40 Abdominal aortic aneurysm, without rupture, unspecified (principal); R93.89 Abnormal findings on diagnostic imaging of other specified body structures; I70.90 Unspecified atherosclerosis
CPT/HCPCS: 93978

== ENCOUNTER 2025-07-08 18:49 | Emergency (ER) | payer OTHER, SELFPAY ==
--- OUTSIDE RECORDS SUMMARY | 2025-07-08 18:53 | XMS_ITS | Patient Health Record ---
Author Organization [facility] Address [address] [place] [address] Support Name Relationship Address Phone RICCI ARIZA Guarantor Unknown [phone] Reason For Referral No Information Plan Of Treatment No Information Insurance Providers Payer Name Payer Address Payer Phone Subscriber Number Group Number Insured Name Patient Relationship to Insured Coverage Start Date Coverage End Date [facility] [address] [place] [address] [id number] RICCI ARIZA Self - patient is the insured
--- OUTSIDE RECORDS SUMMARY | 2025-07-08 18:53 | XMS_ITS | Patient Health Record ---
Author Organization [facility] Address [address] [place] [address] Care Team Providers Care Mfts Name Role Phone Nel Galeana Primary Care Provider Reason For Referral No Information Plan Of Treatment No Information
--- OUTSIDE RECORDS SUMMARY | 2025-07-08 18:53 | XMS_ITS | Patient Health Record ---
Author Organization [facility] Address [address] [facility] [place] [address] Care Team Providers Care Automation Developer Name Role Phone Jane Covington MD Primary Care Provider Kathythai SPEEDY Diaz Unavailable [phone] Allergies No Known Allergies Results Component Value Reference Range Notes Urinalysis, Routine Reviewed date:04/29/2025 10:01:28 AM Interpretation: Performing Lab: Notes/Report: Urine-Color pale yellow Appearance clear Glucose - Bilirubin - Ketones - Specific [place] 1.010 Occult Blood - pH 6.0 Urine Protein - Urobilinogen,Semi-Qn - Nitrite, Urine - WBC Esterase - Reason For Referral No Information Medications Medication SIG (Take, Route, Frequency, Duration) Notes Start Date End Date Status hydroCHLOROthiazide 12.5 MG 1 tablet in the morning Orally Once a day Active Clopidogrel Bisulfate 75 MG 1 tablet Ora lly Once a day Active Tamsulosin HCl 0.4 MG 1 capsule Orally O nce a day Active Lantus 100 UNIT/ML as directed Subcutaneous Active Insulin Aspart 100 UNIT/ML as directed Injection Active amLODIPine Besylate 5 MG 1 tablet Orally Once a day Active Lisinopril 40 MG 1 tablet Orally Once a day Active Mag Glycinate 100 MG as directed Orally Active Social History Tobacco Use: Social History Observation Description Date Details (start date - stop date) Former Smoker NA - NA Tobacco Control (Standard) Question Answer Notes Tobacco use: Former smoker Vital Signs Heart Rate 60 /min 04/29/2025 Blood pressure diastolic 81 mm Hg 04/29/2025 Height-cm 175.26 cm 04/29/2025 Weight-kg 83.92 kg 04/29/2025 Height 69 in 04/29/2025 Blood pressure systolic 140 mm Hg 04/29/2025 Weight 185 lbs 04/29/2025 BMI 27.32 kg/m2 04/29/2025 Procedures Procedure Date Ordered Date Performed Result Body Sit e Bladder Scan 04/29/2025 04/29/2025 230ml Encounters Encounter Location Date Provider Diagnosis [facility] [address] [facility] [place] [address] 04/29/2025 SPEEDY CASTANEDA Elevated PSA R97.20 [facility] [address] [facility] [place] [address] 04/23/2025 SPEEDY LEONEL [facility], [facility] [address] [facility] [place] [address] 05/04/2025 SPEEDY CASTANEDA Assessments Encounter Date Diagnosis (ICD Code) Assessment Notes Treatment Notes Treatment Clinical Notes Section Notes 04/29/2025 Elevated PSA (ICD-10 - R97.20) Pt has elevated PSA with nodule on recent VIPIN. He is scheduled for MRI of the prostate. He is not wishing to transfer urologist care, he is just here requesting ExoDx testing which was not offered at the [place] [facility] clinic. Will send urine for ExoDx and call with results. Plan Of Treatment No Information Insurance Providers Payer Name Payer Address Payer Phone Subscriber Number Group Number Insured Name Patient Relationship to Insured Coverage Start Date Coverage End Date [employer] [address] [address] [place], [place] [id number] Arun Higginbotham Self - patient is the insured Medical (General) History Medical History History ICD Code arthritis diabetes HTN Surgical History Surgery Date(Month/Year) 2 stents heart 2020 Hospitalization History Reason Date(Month/Year) see above
[2025-07-08 18:58] VITALS: BP 136/80; PULSE 114; RESP 18; TEMP 36.4; O2SAT 97; BMI 29.5
--- NOTE | 2025-07-08 20:34 | CTR_ITS ---
PROCEDURE INFORMATION: Exam: CT Abdomen And Pelvis With Contrast Exam date and time: 07/08/2025 9:36 PM Age: 75 years old Clinical indication: Other: Prostate biopsy today now extreme abd pain, hematuria TECHNIQUE: Imaging protocol: Computed tomography of the abdomen and pelvis with contrast. Radiation optimization: All CT scans at this facility use at least one of these dose optimization techniques: automated exposure control; mA and/or kV adjustment per patient size (includes targeted exams where dose is matched to clinical indication); or iterative reconstruction. Contrast material: [id number]; Contrast volume: 100 ml; Contrast route: INTRAVENOUS (IV); COMPARISON: CT angio abdomen pelvis [id number] 01/03/2022 4:17 PM RADIATION DOSE METRICS: Total DLP (mGy-cm): 1374.43 FINDINGS: Lungs: Lung bases are clear as visualized. Heart: Base of heart is unremarkable as visualized. Coronary arteries: Heavy coronary calcified atherosclerotic disease. Liver: Normal. No mass. Gallbladder and biliary ducts: Normal. No calcified stones. No ductal dilation. Pancreas: Normal. No ductal dilation. Spleen: Normal. No splenomegaly. Adrenal glands: Normal. No mass. Kidneys and ureters: Normal. No hydronephrosis. Stomach and bowel: Diverticulosis without evidence of diverticulitis. Appendix: No evidence of appendicitis. Intraperitoneal space: Unremarkable. No free air. No significant fluid collection. Vasculature: Infrarenal abdominal aortic aneurysm measuring 4.0 x 4.2 cm increased in size from prior comparison (series 4 image 42). Additional site of abdominal aortic ectasia is noted inferiorly to the aneurysm sac just prior to the iliac bifurcation. Noncalcified mural thrombus is seen. Peripheral arterial vascular disease. Lymph nodes: Unremarkable. No enlarged lymph nodes. Urinary bladder: Hemorrhage and hemorrhagic debris is seen within the dependent aspects of the distended urinary bladder. Some mild adjacent inflammatory change. Reproductive: Prostatomegaly. Dystrophic calcifications of the prostate gland are seen. Bones/joints: Unremarkable. No acute fracture. Soft tissues: Unremarkable. CT/CT abdomen pelvis w con* [id number] IMPRESSION: 1. Findings of which can be seen in hemorrhagic cystitis (although this is confounded by the provided patient history of recent prostate biopsy). Consider urology consultation for further assessment and management. 2. Infrarenal abdominal aortic aneurysm which appears to have increased from prior comparison. Stable additional site of infrarenal abdominal aortic ectasia seen inferior to the aneurysm sac. Noncalcified thrombus is seen within the sac and the focus of ectasia which is new from prior comparison.
[2025-07-08 20:50] VITALS: RESP 18; O2SAT 96
[2025-07-08] MEDS: ondansetron 2 mg/ML SDV 2 mL 4 MG IVP (20:50)
[2025-07-08] MEDS: morphine 4 mg/mL SDV 1 mL IVP (20:50)
[2025-07-08 20:56] LABS: Hematocrit 46.5 % (37-53); Hemoglobin 16.10 g/dL (11.27-16.99); Mean Corpuscular HGB Conc 34.6 g/dL (30-55); Mean Corpuscular Hemoglobin 31.8 pg (27-33); Mean Corpuscular Volume 91.7 fl (82-101); Nucleated Red Blood Cells % 0 %; Platelet Count 193 10^3/cmm (157-399); Red Blood Count 5.07 10^6/uL (3.85-5.65); White Blood Count 10.55 10^3/uL (3.29-11.43)
[2025-07-08 21:15] LABS: INR 0.93 (0.8-1.2); Partial Thromboplastin Time 22.2 SECONDS (23.9-36.7); Prothrombin Time 13.10 SECONDS (12.1-14.9)
[2025-07-08 21:21] LABS: Alanine Aminotransferase 13 U/L (0-41); Albumin Level 4.6 g/dL (3.5-5.2); Alkaline Phosphatase 70 U/L (40-130); Anion Gap 20.4 (5-19); Aspartate Amino Transferase 15 U/L (0-40); Blood Urea Nitrogen 25 mg/dL (8-23); Calcium 9.4 mg/dL (8.5-10.5); Carbon Dioxide 20 mmol/L (22-29); Chloride 101 mmol/L (98-107); Globulin 2.2 g/dL (1.3-4.6); Glucose 199 mg/dL (65-115); Magnesium 2.1 mg/dL (1.7-2.3); Osmolality Calculated 294 mOsm/kg (285-295); Potassium 4.4 mmol/L (3.5-5.1); Sodium 137 mmol/L (136-145); Total Protein 6.8 g/dL (6.6-8.7)
[2025-07-08 21:23] LABS: Lactic Sepsis W/Reflex 2.3 mmol/L (0.5-2.2)
[2025-07-08 21:30] LABS: Add Urine Microscopic? YES
[2025-07-08] MEDS: iohexol 350 mg/mL 500 mL Btl (per mL) IV (21:36)
[2025-07-08] MEDS: HYDROmorphone 0.5 MG/0.5 ML INJ IVP (22:08)
[2025-07-08 22:38] LABS: Reflex Lactate Order REFLEX LACTIC ORDERD
[2025-07-08 23:31] VITALS: BP 125/72; PULSE 97; O2SAT 89
[2025-07-09 00:01] VITALS: BP 118/76; PULSE 95; O2SAT 89
[2025-07-09 00:17] LABS: Lactic Acid level (Lactate) 1.6 mmol/L (0.5-2.2)
[2025-07-09 00:31] VITALS: BP 161/92; PULSE 87; O2SAT 90
--- NOTE | 2025-07-09 00:48 | W.ED.MALEGU ---
HPI - Male Genitourinary General: Chief complaint: Urogenital-Male Stated complaint: post prostate biopsy sev pain bleed cant pee Time Seen by Provider: 07/08/25 20:08 History of Present Illness: Patient is a 75-year-old male with past medical history of diabetes, CAD, hypertension who presents to the ED with hematuria and acute abdominal pain. Had a transrectal prostate biopsy today to further evaluate for cancer, was initially doing fine and then a few hours later developed abdominal distention and pain, with urine he did have was dark bloody. He has been holding his Plavix for the last 10 days due to this procedure. Related Data Home Medications ?Medication ?Instructions ?Recorded ?Confirmed insulin aspart U-100 100 unit/mL See Rx Instructions .Route .COMPLEX 11/23/20 11/10/24 (3 mL) subcutaneous pen (Novolog FlexPen U-100 Insulin aspart) metoprolol tartrate 100 mg tablet 100 mg PO BID 11/23/20 11/10/24 lisinopril 40 mg tablet 20 mg PO DAILY@04 10/04/22 11/10/24 insulin glargine 100 unit/mL (3 12 unit SUBCUT QPM 11/10/24 11/10/24 mL) subcutaneous pen (Lantus Solostar U-100 Insulin) meloxicam 7.5 mg tablet 7.5 mg PO DAILY PRN 11/10/24 11/10/24 metformin 1,000 mg tablet 1,000 mg PO BID PRN 11/10/24 11/10/24 tamsulosin 0.4 mg capsule 0.4 mg PO DAILY 11/10/24 11/10/24 Previous Rx's ?Medication ?Instructions ?Recorded [facility] Brace #1 ea 11/23/20 clopidogrel 75 mg tablet (Plavix) 75 mg PO DAILY #90 tabs 10/27/21 amlodipine 5 mg tablet 5 mg PO DAILY #90 tabs 11/10/24 Allergies Allergy/AdvReac Type Severity Reaction Status Date / Time ketoconazole Allergy Intermediate hives Verified 07/09/25 06:04 Review of Systems General: Reports: 10 or more systems reviewed and unremarkable except in HPI and below PFSH ED PFSH: Medical History (Updated 07/09/25 @ 07:06 by Michael Neely DO) Chronic cellulitis Atherosclerosis of coronary artery Abdominal aortic aneurysm, without rupture Allergic rhinitis, unspecified Benign prostatic hyperplasia without lower urinary tract symptoms Cervicalgia Chronic laryngitis Essential (primary) hypertension Generalized anxiety disorder Hyperlipidemia, unspecified Insomnia, unspecified Low back pain Obesity, unspecified Obstructive sleep apnea (adult) (pediatric) Pain in left arm Type 2 diabetes mellitus without complications Unspecified chronic gastritis without bleeding Family History Other Cancer Social History Smoking and tobacco/nicotine status: former use of tobacco/nicotine Quit status (tobacco/nicotine): has quit using Year quit tobacco: 2011 Former quit date comment: 1 1/2 PER DAY X 25 YEARS Alcohol intake: former Physical Exam Narrative: EXAM NARRATIVE: Patient in moderate distress secondary to pain on arrival, tachycardic but other vital stable, afebrile overall well-appearing. Abdomen with moderate distention, generalized diffuse tenderness throughout, no overlying skin changes, bowel sounds intact, no CVA tenderness. No external abnormalities to, genitalia, no testicular or penile tenderness. Breathing comfortably on room air, saturating well, sinus tach, normotensive, mild nonpitting edema, good cap refill. GCS 15. Course Vital Signs: Vital signs: Vital Signs Temperature 97.5 F L 07/08/25 18:58 Pulse Rate 85 07/09/25 01:46 Respiratory Rate 18 07/08/25 20:50 Blood Pressure 137/87 07/09/25 01:46 Pulse Oximetry 90 07/09/25 01:46 Oxygen Delivery Me thod Room Air 07/09/25 01:01 MDM - Male Medical Decision Making -ddx: Postprocedural bleeding, acute urinary retention, bladder outlet obstruction, tract perforation, hollow viscus injury, acute blood loss - Patient presents in moderate distress secondary to pain, abdominal distention and some hematuria in setting of prostate biopsy today. On PVR, patient has over 800 cc in his bladder. On CT scan no obvious other concerning pathology other than a large bladder. A large Rock was then placed, with only less than 50 cc of dark red clots obtained. Patient still had significant pain after a second dose of pain medication. Due to concerns for needing CBI, his original place procedure was called, the [facility] in [place] and they initially agreed to accept patient in transfer for evaluation with his original surgery team. He had a hemoglobin of 11, lactate at 2.3, suspect secondary to mild dehydration, they then called back and refused to accept him stating 4 hours away was too long in setting of possible decompensation. In setting of this, flushed the catheter multiple times at bedside by bedside nurse who was able to get out about 300 cc of urine in the bag, patient felt moderately better. This was then tried again in 30 minutes and a total of about 500 more cc came out in the Rock bag, wine colored, marked improvement in abdominal distention and pain prevention completely gone. We discussed the transfer situation with patient and stated that even though the original team declined I can try to send him elsewhere but with him feeling better and the Rock seeming to work he was amenable to discharge with otherwise reassuring laboratory and CT workup, him and his are showed how to drain the Rock at home with a Nick syringe if needed and advised to call his urologist in the morning and set up an expedited follow-up for their evaluation, patient stable, pain completely gone, Rock seemingly patent and discharged in stable condition with at bedside and strict return precautions given. Lab Data 07/08/25 20:47 07/08/25 20:47 Radiology Impressions Abdomen/Pelvis CT 07/08/25 20:34 IMPRESSION: 1. Findings of which can be seen in hemorrhagic cystitis (although this is confounded by the provided patient history of recent prostate biopsy). Consider urology consultation for further assessment and management. 2. Infrarenal abdominal aortic aneurysm which appears to have increased from prior comparison. Stable additional site of infrarenal abdominal aortic ectasia seen inferior to the aneurysm sac. Noncalcified thrombus is seen within the sac and the focus of ectasia which is new from prior comparison. Laboratory Results WBC 10.55 10^3/uL (3.29-11.43) 07/08/25 20:47 RBC 5.07 10^6/uL (3.85-5.65) 07/08/25 20:47 Hgb 16.10 g/dL (11.27-16.99) 07/08/25 20:47 Hct 46.5 % (37-53) 07/08/25 20:47 MCV 91.7 fl (82-101) 07/08/25 20:47 MCH 31.8 pg (27-33) 07/08/25 20:47 MCHC 34.6 g/dL (30-55) 07/08/25 20:47 RDW 13.2 % (12.1-15.1) 07/08/25 20:47 Plt Count 193 10^3/cmm (157-399) 07/08/25 20:47 MPV 10.7 fL (7.4-10.4) H 07/08/25 20:47 Neut % (Auto) 90.4 % 07/08/25 20:47 Lymph % (Auto) 4.5 % 07/08/25 20:47 Day % (Auto) 4.5 % 07/08/25 20:47 Eos % (Auto) 0.0 % 07/08/25 20:47 Baso % (Auto) 0.2 % 07/08/25 20:47 Neut # (Auto) 9.55 10^3/uL (1.8-7.7) H 07/08/25 20:47 Lymph # (Auto) 0.5 10^3/uL (0.8-4.8) L 07/08/25 20:47 Day # (Auto) 0.5 10^3/uL (0.2-0.9) 07/08/25 20:47 Eos # (Auto) 0.0 10^3/uL (0.0-0.8) 07/08/25 20:47 Baso # (Auto) 0.0 10^3/uL (0.0-0.1) 07/08/25 20:47 Nucleated RBC % (auto) 0 % 07/08/25 20:47 Nucleated RBCs # 0.0 /100WBC 07/08/25 20:47 PT 13.10 SECONDS (12.1-14.9) 07/08/25 20:47 INR 0.93 (0.8-1.2) 07/08/25 20:47 APTT 22.2 SECONDS (23.9-36.7) L 07/08/25 20:47 Sodium 137 mmol/L (136-145) 07/08/25 20:47 Potassium 4.4 mmol/L (3.5-5.1) 07/08/25 20:47 Chloride 101 mmol/L (98-107) 07/08/25 20:47 Carbon Dioxide 20 mmol/L (22-29) L 07/08/25 20:47 Anion Gap 20.4 (5-19) H 07/08/25 20:47 BUN 25 mg/dL (8-23) H 07/08/25 20:47 Creatinine 1.2 mg/dL (0.7-1.2) 07/08/25 20:47 GFR Calculation Not Reportable 07/08/25 20:47 Glucose 199 mg/dL (65-115) H 07/08/25 20:47 Calculated Osmolality 294 mOsm/kg (285-295) 07/08/25 20:47 Lactic Acid 2.3 mmol/L (0.5-2.2) H 07/08/25 20:47 Lactic Acid (Sepsis) 1.6 mmol/L (0.5-2.2) 07/08/25 23:45 Calcium 9.4 mg/dL (8.5-10.5) 07/08/25 20:47 Phosphorus 3.5 mg/dL (2.5-4.5) 07/08/25 20:47 Magnesium 2.1 mg/dL (1.7-2.3) 07/08/25 20:47 Total Bilirubin 0.7 mg/dL (0.15-1.2) 07/08/25 20:47 AST 15 U/L (0-40) 07/08/25 20:47 ALT 13 U/L (0-41) 07/08/25 20:47 Alkaline Phosphatase 70 U/L (40-130) 07/08/25 20:47 C-Reactive Protein 3.0 mg/L (0.0-4.9) 07/08/25 20:47 Total Protein 6.8 g/dL (6.6-8.7) 07/08/25 20:47 Albumin 4.6 g/dL (3.5-5.2) 07/08/25 20:47 Globulin 2.2 g/dL (1.3-4.6) 07/08/25 20:47 Urine Color Red (Yellow) A 07/08/25 21:19 Urine Appearance Turbid (CLEAR) A 07/08/25 21:19 Urine pH Not Reportable 07/08/25 21:19 Ur Specific [place] Not Reportable 07/08/25 21:19 Urine Protein Not Reportable 07/08/25 21:19 Urine Glucose (UA) Not Reportable 07/08/25 21:19 Urine Ketones Not Reportable 07/08/25 21:19 Urine Blood Not Reportable 07/08/25 21:19 Urine Nitrate Not Reportable 07/08/25 21:19 Urine Bilirubin Not Reportable 07/08/25 21:19 Urine Urobilinogen Not Reportable 07/08/25 21:19 Ur Leukocyte Esterase Not Reportable 07/08/25 21:19 Urine RBC Too numerous to cnt /hpf (0-2) H 07/08/25 21:19 Urine WBC 0-4 /hpf (0-5) H 07/08/25 21:19 Ur Squamous Epith Cells 0-4 /hpf (0-5) H 07/08/25 21:19 Amorphous Sediment Not Reportable 07/08/25 21:19 Urine Bacteria Trace /hpf (NONE) 07/08/25 21:19 All radiology interpretation(s) finalized by discharge Discharge Plan Discharge Patient Disposition: Home Clinical Impression: Acute urinary retention, Hematuria Condition: Stable Prescriptions: No Action insulin aspart U-100 [Novolog FlexPen U-100 Insulin] 100 unit/mL (3 mL) insulin pen See Rx Instructions .ROUTE .COMPLEX Rx Instructions: SLIDING SCALE 5-15 UNITS subcutaneously TID BEFORE MEALS metoprolol tartrate 100 mg tablet 100 mg PO BID (DME) [facility] Brace See Rx Instructions .Route .MEDSUPPLY Qty: 1 0RF Rx Instructions: As directed Lantus Solostar U-100 Insulin 100 unit/mL (3 mL) insulin pen 12 unit SUBCUT QPM metformin 1,000 mg tablet 1,000 mg PO BID PRN tamsulosin 0.4 mg capsule 0.4 mg PO DAILY amlodipine 5 mg tablet 5 mg PO DAILY Qty: 90 3RF clopidogrel [Plavix] 75 mg tablet 75 mg PO DAILY Qty: 90 3RF lisinopril 40 mg tablet 20 mg PO DAILY@04 meloxicam 7.5 mg tablet 7.5 mg PO DAILY PRN Discharge Orders: Discharge ED (Routine); Ordered 07/09/25 Ordered By: Lenny Pedro Referrals: Jane Gupta MD [Primary Care Provider, Family Practice] Discharge Diet: Advance as tolerated Discharge Activity: Increase activity as tolerated Patient Instructions: Opioid Safety, Pain Management, Patient Portal & Bart Instructions Activity Restrictions/Additional Instructions: You were seen for your abdominal pain and bleeding in your urine, you were evaluated with labs, an ultrasound and CT scan which showed you to have a large amount of fluid backup, which was because there was clotted blood. A Rock was placed and with saline flushes, your urine was able to be drained and with a reassuring ED evaluation, you were able to be discharged home with the Rock in place, you should call the original urologist tomorrow to see if you can get an appointment tomorrow or the next day for their more inclusive evaluation. Have your flush the Rock with 20 to 50 mL of saline to wash out the clots if needed. Return to the ED with severe worsening of your abdominal swelling, not having urine output in the Rock bag for over 6 hours, vomiting, fevers, any other emergent concerns. Print Language: Turkish Coding Level of Care Code ED Mining Engineer for Servando Ortiz
[2025-07-09 01:01] VITALS: BP 136/99; PULSE 89; O2SAT 90
[2025-07-09 01:46] VITALS: BP 137/87; PULSE 85; O2SAT 90
== END 2025-07-09 01:47 | disposition home or self-care (01) ==
PROVIDERS: Emergency Provider Student in an Organized Health Care Education/Training Program; PCP Family Medicine
DX: R33.8 Other retention of urine (principal); R31.9 Hematuria, unspecified; Z79.4 Long term (current) use of insulin; Z79.84 Long term (current) use of oral hypoglycemic drugs; Z79.02 Long term (current) use of antithrombotics/antiplatelets; Z87.891 Personal history of nicotine dependence; E78.5 Hyperlipidemia, unspecified; I10 Essential (primary) hypertension; I25.10 Atherosclerotic heart disease of native coronary artery without angina pectoris; E11.9 Type 2 diabetes mellitus without complications
CPT/HCPCS: 36415; 51798; 74177; 80053; 81001; 83605; 83735; 84100; 85025; 85610; 85730; 86140; 87086; 96361; 96374; 96375; 99285; J1171; J2270; J2405; J7030

== ENCOUNTER 2025-07-09 05:49 | Emergency (ER) | payer OTHER, SELFPAY ==
[2025-07-09 05:59] VITALS: BP 145/87; PULSE 104; RESP 18; TEMP 36.6; O2SAT 93; BMI 29.5
--- NOTE | 2025-07-09 06:03 | W.ED.GENADLT ---
HPI - General Adult General: Chief complaint: Urogenital-Male Stated complaint: cath needs flushed, he wants to watch to learn Time Seen by Provider: 07/09/25 06:02 History of Present Illness: 75-year-old male presents emergency room he was here last night he is postop day 1 from a transrectal prostate biopsy postoperatively he had difficulty with hematuria and bladder outlet obstruction. He was seen last night Rock was placed and they flushed it they had some difficulty with flushing they were planning to transfer but then manage to get a catheter to flush was able to irrigate the bladder and it was working well cannot transfer was canceled as the patient was no longer obstructed and the Rock was in place and working correctly. This morning he returns because he is concerned he cannot flush it on his own. He was instructed by the staff last night on managing the catheter and flushing it. Related Data Home Medications ?Medication ?Instructions ?Recorded ?Confirmed insulin aspart U-100 100 unit/mL See Rx Instructions .Route .COMPLEX 11/23/20 11/10/24 (3 mL) subcutaneous pen (Novolog FlexPen U-100 Insulin aspart) metoprolol tartrate 100 mg tablet 100 mg PO BID 11/23/20 11/10/24 lisinopril 40 mg tablet 20 mg PO DAILY@04 10/04/22 11/10/24 insulin glargine 100 unit/mL (3 12 unit SUBCUT QPM 11/10/24 11/10/24 mL) subcutaneous pen (Lantus Solostar U-100 Insulin) meloxicam 7.5 mg tablet 7.5 mg PO DAILY PRN 11/10/24 11/10/24 metformin 1,000 mg tablet 1,000 mg PO BID PRN 11/10/24 11/10/24 tamsulosin 0.4 mg capsule 0.4 mg PO DAILY 11/10/24 11/10/24 Previous Rx's ?Medication ?Instructions ?Recorded [facility] Brace #1 ea 11/23/20 clopidogrel 75 mg tablet (Plavix) 75 mg PO DAILY #90 tabs 10/27/21 amlodipine 5 mg tablet 5 mg PO DAILY #90 tabs 11/10/24 Allergies Allergy/AdvReac Type Severity Reaction Status Date / Time ketoconazole Allergy Intermediate hives Verified 07/09/25 06:04 PFSH ED PFSH: Medical History Chronic cellulitis Atherosclerosis of coronary artery Abdominal aortic aneurysm, without rupture Allergic rhinitis, unspecified Benign prostatic hyperplasia without lower urinary tract symptoms Cervicalgia Chronic laryngitis Essential (primary) hypertension Generalized anxiety disorder Hyperlipidemia, unspecified Insomnia, unspecified Low back pain Obesity, unspecified Obstructive sleep apnea (adult) (pediatric) Pain in left arm Type 2 diabetes mellitus without complications Unspecified chronic gastritis without bleeding Family History Other Cancer Social History Smoking and tobacco/nicotine status: former use of tobacco/nicotine Quit status (tobacco/nicotine): has quit using Year quit tobacco: 2011 Former quit date comment: 1 1/2 PER DAY X 25 YEARS Alcohol intake: former Physical Exam Const: GENERAL APPEARANCE: cooperative ORIENTATION/CONSCIOUSNESS: Yes awake, Yes oriented to person, Yes oriented to place and Yes oriented to time HENMT: COMMON NORMALS: normocephalic, atraumatic and hearing grossly normal bilaterally HEAD & SCALP: normocephalic and atraumatic Resp: COMMON NORMALS: normal respiratory effort, No retractions, No use of accessory muscles and clear to auscultation bilaterally AUSCULTATION: clear to auscultation bilaterally Cardio: COMMON NORMALS: regular rate, regular rhythm and No murmurs present (Cardio) RATE: regular rate RHYTHM: regular rhythm GI: COMMON NORMALS: Soft to palpation and No hepatosplenomegaly present AUSCULTATION: Yes normoactive bowel sounds PALPATION: Yes Soft to palpation, No Tenderness to palpation present (GI), No Guarding due to palpation present (GI) and Yes No hepatosplenomegaly present Extremity: COMMON NORMALS: normal to inspection, capillary refill normal, no clubbing, cyanosis or edema, no calf tenderness and no pedal edema Neuro: SENSORIUM/ORIENTATION: Yes oriented to person, Yes oriented to place and Yes oriented to time Skin: COMMON NORMALS: no rashes or lesions noted GENERAL SKIN EXAM: no rashes or lesions noted Course Vital Signs: Vital signs: Vital Signs Temperature 98 F 07/09/25 05:59 Pulse Rate 79 07/09/25 08:00 Respiratory Rate 18 07/09/25 05:59 Blood Pressure 144/82 07/09/25 08:00 Pulse Oximetry 94 07/09/25 08:00 Oxygen Delivery Me thod Room Air 07/09/25 08:00 MDM - General Adult Medical Decision Making Medical decision making Social determinants: Patient has risk because of difficulty understanding how to manage the catheter and limited ability to access health care due to transportation issues neither him nor his can drive at night and do not feel capable of driving long distances. I reviewed the patient's medical record. Records from last night reviewed I reviewed the patient's current home meds.?Patient was on clopidogrel, this was stopped prior to the procedure he has not restarted it. He is taking a baby aspirin daily. Alternate historians: Differential diagnosis: BPH, complication of prostate biopsy Lab Review: Labs from last evening reviewed Imaging: None Assessment of risk Level of risk: Moderate Hospitalization considerations: Consideration for hospitalization if unable to get catheter to function properly Reexamination: Unchanged stable catheter now working well Assessment and plan: Bladder scan showed 380 mL retained in the bladder. We were able to easily irrigate out. Dark bloody irrigated from the bladder. Continue to irrigate until pink-tinged. Will give supplies to discharge home. Talking to the patient one of the issues was he did not have alcohol wipes or gloves to irrigate the bladder as he had been shown by staff last evening. We have irrigated until clear [facility] or waiting to hear back from the urologist will discharge the patient home and asked the [facility] team and the [facility] to [facility]. They are anxious to go home they have been up most of the night. No radiology studies performed this visit Discharge Plan Discharge Patient Disposition: Home Clinical Impression: Hematuria, Acute urinary retention, Hx of prostate biopsy Condition: Stable Prescriptions: No Action insulin aspart U-100 [Novolog FlexPen U-100 Insulin] 100 unit/mL (3 mL) insulin pen See Rx Instructions .ROUTE .COMPLEX Rx Instructions: SLIDING SCALE 5-15 UNITS subcutaneously TID BEFORE MEALS metoprolol tartrate 100 mg tablet 100 mg PO BID (DME) [facility] Brace See Rx Instructions .Route .MEDSUPPLY Qty: 1 0RF Rx Instructions: As directed Lantus Solostar U-100 Insulin 100 unit/mL (3 mL) insulin pen 12 unit SUBCUT QPM metformin 1,000 mg tablet 1,000 mg PO BID PRN tamsulosin 0.4 mg capsule 0.4 mg PO DAILY amlodipine 5 mg tablet 5 mg PO DAILY Qty: 90 3RF clopidogrel [Plavix] 75 mg tablet 75 mg PO DAILY Qty: 90 3RF lisinopril 40 mg tablet 20 mg PO DAILY@04 meloxicam 7.5 mg tablet 7.5 mg PO DAILY PRN Discharge Orders: Discharge ED (Routine); Ordered 07/09/25 Ordered By: Michael Neely Referrals: Jane Gupta MD [Primary Care Provider, Family Practice] Discharge Diet: Usual diet Discharge Activity: Increase activity as tolerated Patient Instructions: Opioid Safety, Pain Management, Patient Portal & Bart Instructions Activity Restrictions/Additional Instructions: Thank you for choosing [facility] for your healthcare needs today. It is very important that you follow up as instructed or that you return to the Emergency Department should you have concerns or if your condition changes or worsens in any way. Emergency department visits are focused on emergent conditions, in some cases you may require further evaluation on an outpatient basis. You were seen in the emergency room with concerns about your Rock catheter was again irrigated until clear. Recommend you follow-up with the physician who did the biopsy was done as soon as you are able. If you are unable to get the Rock catheter to drain or you begin to have discomfort in the abdomen return to the emergency room. (Please note that included in your discharge packet is information concerning opioid safety and pain management. This information is given to all patients were discharged from the ER regardless of their discharge diagnosis or the medicines they usually take or are prescribed.) Print Language: Zambian Coding Level of Care Code ED Sanitation Worker for Servando Ortiz
--- OUTSIDE RECORDS SUMMARY | 2025-07-09 06:03 | XMS_ITS | Patient Health Record ---
Author Organization [facility] Address [address] [place] [address] Care Team Providers Care Grab Jack Worker Name Role Phone Jane Covington MD Primary Care Provider Kathythai SPEEDY Diaz Unavailable [phone] Allergies No Known Allergies Results Component Value Reference Range Notes Urinalysis, Routine Reviewed date:04/29/2025 10:01:28 AM Interpretation: Performing Lab: Notes/Report: Urine-Color pale yellow Appearance clear Glucose - Bilirubin - Ketones - Specific [place] 1.010 Occult Blood - pH 6.0 Urine [...] 230ml Encounters Encounter Location Date Provider Diagnosis [facility] [address] [place] [address] 04/29/2025 SPEEDY CASTANEDA Elevated PSA R97.20 [facility] [address] [place] [address] 04/23/2025 SPEEDY LEONEL [facility] [address] [place] [address] 05/04/2025 SPEEDY CASTANEDA Assessments Encounter Date Diagnosis (ICD Code) Assessment Notes Treatment Notes Treatment Clinical Notes Section Notes 04/29/2025 Elevated PSA (ICD-10 - R97.20) Pt has elevated PSA with nodule on recent VIPIN. He is scheduled for MRI of the prostate. He is not wishing to transfer urologist care, he is just here requesting ExoDx testing which was not offered at the [place] [facility] clinic. Will send urine for ExoDx and call with results. Plan Of Treatment No Information Insurance Providers Payer Name Payer Address Payer Phone Subscriber Number Group Number Insured Name Patient Relationship to Insured Coverage Start Date Coverage End Date [employer] Medicare Replacement [address] [address] [place], [place] [id number] Arun Higginbotham Self - patient is the insured Medical (General) History Medical History History ICD Code arthritis diabetes HTN Surgical History Surgery Date(Month/Year) 2 stents heart 2020 Hospitalization History Reason Date(Month/Year) see above
--- OUTSIDE RECORDS SUMMARY | 2025-07-09 06:03 | XMS_ITS | Patient Health Record ---
Author Organization [facility] Address [address] [place] [address] Support Name Relationship Address Phone RICCI ARIZA Guarantor Unknown [phone] Reason For Referral No Information Plan Of Treatment No Information Insurance Providers Payer Name Payer Address Payer Phone Subscriber Number Group Number Insured Name Patient Relationship to Insured Coverage Start Date Coverage End Date [facility] [address] [place] [address] [id number] RICCI ARIZA Self - patient is the insured
--- OUTSIDE RECORDS SUMMARY | 2025-07-09 06:03 | XMS_ITS | Patient Health Record ---
Author Organization [facility] Address [address] [place] [address] Care Team Providers Care Linen Manager Name Role Phone Nel Galeana Primary Care Provider [phone] Reason For Referral No Information Plan Of Treatment No Information
[2025-07-09 08:00] VITALS: BP 144/82; PULSE 79; O2SAT 94
--- NOTE | 2025-07-09 08:20 | PC.NURSE ---
MOORE CATHETER IRRIGATED WITH 2L OF STERILE WATER.
--- NOTE | 2025-07-09 08:30 | PC.NURSE ---
MOORE DRAINING AFTER BLADDER IRRIGATION.
[2025-07-09 10:17] VITALS: BP 137/73; PULSE 74; O2SAT 93
== END 2025-07-09 10:18 | disposition home or self-care (01) ==
PROVIDERS: Emergency Provider Family Medicine; PCP Family Medicine
DX: R31.9 Hematuria, unspecified (principal); R33.8 Other retention of urine; Z79.02 Long term (current) use of antithrombotics/antiplatelets; Z79.4 Long term (current) use of insulin; Z79.84 Long term (current) use of oral hypoglycemic drugs; Z87.891 Personal history of nicotine dependence; I25.10 Atherosclerotic heart disease of native coronary artery without angina pectoris; E78.5 Hyperlipidemia, unspecified; I10 Essential (primary) hypertension; E11.9 Type 2 diabetes mellitus without complications; Z98.890 Other specified postprocedural states
CPT/HCPCS: 51798; 99283